=== PATIENT | female | born 1950 | race Caucasian/White ===

== ENCOUNTER → 2016-09-22 | Outpatient (CLI) | payer MEDICARE ==
--- NOTE | 2016-09-23 07:32 | XR ---
EXAMINATION TYPE: XR hand complete LT DATE OF EXAM: 09/22/2016 4:22 PM COMPARISON: NONE HISTORY: 66 year-old female left wrist and hand pain, stiffness TECHNIQUE: 3 views FINDINGS: A ring is present on the 4th digit. There are osteoarthritic changes, severe at the first CMC joint a nd also at the second DIP and third PIP joint, moderate at the first IP joint. Additional marginal sp urring and joint space narrowing at additional interphalangeal joints as well. No clear marginal eros ions. No soft tissue calcifications. No acute fracture or dislocation. IMPRESSION: Osteoarthritic changes, severe at the base of the thumb, first DIP, and third PIP joints but with add itional scattered osteoarthritic changes throughout the fingers.
== END ==
LOC: RADXRYALE 16:09
PROVIDERS: ATTEND Physician Assistant Medical
DX: M19.042 Primary osteoarthritis, left hand (principal)

== ENCOUNTER → 2016-12-30 | Outpatient (CLI) | payer MEDICARE ==
--- NOTE | 2016-12-30 10:49 | XR ---
EXAMINATION TYPE: XR knee complete bilateral , 6 VIEWS DATE OF EXAM ORDERED: 12/30/2016 HISTORY: [id number] dayday knee pain. COMPARISON: None. FINDINGS: There is peaking of intercondylar spines bilaterally. There is medial joint space loss dayday aterally. There is no chondrocalcinosis. There are mild remodeling changes in the patellofemoral join ts. I suspect a small right knee joint effusion. No definite left effusion is seen. No acute osseous lesion is seen. IMPRESSION: CHANGES CONSISTENT WITH MILD OSTEOARTHRITIS WITH A CONCOMITANT KNEE JOINT EFFUSION ON THE RIGHT.
== END | disposition home or self-care (01) ==
LOC: RADXRYALE 10:09
PROVIDERS: ATTEND Physician Assistant Medical
DX: M25.461 Effusion, right knee (principal); M25.562 Pain in left knee

== ENCOUNTER → 2017-06-22 | Outpatient (CLI) | payer MEDICARE ==
--- NOTE | 2017-06-23 10:46 | MM ---
Reason for exam: screening (asymptomatic). Last mammogram was performed 1 year and 1 month ago. History: Patient is postmenopausal. Family history of breast cancer in sister at age 50 and breast cancer in mother at age 70. Physical Findings: A clinical breast exam by your physician is recommended on an annual basis and results should be correlated with mammographic findings. MG 3D Screening Mammo W/Cad Bilateral CC and MLO view(s) were taken. Prior study comparison: June 01, 2016, bilateral MG 3d screening mammo w/cad. May 20, 2015, bilateral MG screening mammo w CAD. May 07, 2014, right breast MG work up mamm w CAD RT. There are scattered fibroglandular densities. Finding: There are typically benign round, diffuse and grouped calcifications in both breasts. There is no discrete abnormality. ASSESSMENT: Benign, BI-RAD 2 RECOMMENDATION: Routine screening mammogram of both breasts in 1 year.
== END ==
LOC: RADMAMWWP 08:57
PROVIDERS: ATTEND Family Medicine
DX: Z12.31 Encounter for screening mammogram for malignant neoplasm of breast (principal)
CPT/HCPCS: 77063; 77067

== ENCOUNTER 2017-11-03 10:50 | Day surgery (SDC) | payer MEDICARE ==
[~2017-11-03 10:50] MED LIST: LACTATED RINGERS 1,000 ML IV SCH; LIDOCAINE 1% 20 ML VIAL (10MG/ML) FOR IV START INTRADERMA PRN
[2017-11-03 11:33] VITALS: RESP 18; TEMP 97.5
[2017-11-03] MEDS ORDERED: LACTATED RINGERS 1,000 ML IV ONE (11:33)
--- NOTE | 2017-11-03 11:56 | P.GSHP ---
History of Present Illness H&P Date: 11/03/17 Chief Complaint: Colon cancer screening Patient here today for screening colonoscopy. No bowel related complaints. She is known to our service from evaluation of a left internal hernia in the past. Past Medical History Past Medical History: Rheumatoid Arthritis (RA) Additional Past Medical History / Comment(s): PULMONARY FIBROSIS. URINARY FREQUENCY. History of Any Multi-Drug Resistant Organisms: None Reported Past Surgical History: Hernia Repair, Orthopedic Surgery Additional Past Surgical History / Comment(s): BILATERAL CATARACT. LUNG BIOPSY. RIGHT ROTATOR CUFF. CARPAL TUNNEL. Past Anesthesia/Blood Transfusion Reactions: Motion Sickness Additional Past Anesthesia/Blood Transfusion Reaction / Comment(s): DIFFICULT TO WAKE UP Past Psychological History: No Psychological Hx Reported Smoking Status: Never smoker Past Alcohol Use History: None Reported Past Drug Use History: None Reported Medications and Allergies Home Medications Medication Instructions Recorded Confirmed Type Albuterol Sulfate [Proair Hfa] 1 puff INHALATION DAILY PRN 10/29/17 11/03/17 History Aspirin [Adult Low Dose Aspirin EC] 81 mg PO DAILY 10/29/17 11/03/17 History Budesonide/Formoterol Fumarate 1 puff INHALATION BID 10/29/17 11/03/17 History [Symbicort 80-4.5 Mcg Inhaler] Calcium Carbonate/Vitamin D3 1 tab PO DAILY 10/29/17 11/03/17 History [Calcium 500-Vit D3 200 Tablet] Etanercept [Enbrel] 50 mg IM TU 10/29/17 11/03/17 History Fluticasone Nasal [place] [Flonase 1 spray NASAL DAILY 10/29/17 11/03/17 History Nasal [place]] L.acidoph,Paracasei, B.lactis 1 cap PO DAILY 10/29/17 11/03/17 History [Probiotic] Levothyroxine Sodium [Synthroid] 112 mcg PO QAM 10/29/17 11/03/17 History Montelukast [Singulair] 10 mg PO DAILY 10/29/17 11/03/17 History Oxybutynin Chloride [Ditropan XL] 10 mg PO DAILY 10/29/17 11/03/17 History Turmeric Root Extract [Turmeric] 1 tab PO DAILY 10/29/17 11/03/17 History Allergies Allergy/AdvReac Type Severity Reaction Status Date / Time ciprofloxacin [From Cipro] Allergy GETS A Verified 11/03/17 11:24 COLD SORE loratadine [From Claritin] Allergy Rash/Hives Verified 11/03/17 11:24 nitrofurantoin Allergy POSSIBLY Verified 11/03/17 11:24 [From Macrobid] CAUSE THE PULMONARY FIBROSIS Sulfa (Sulfonamide Allergy Rash/Hives Verified 11/03/17 11:24 Antibiotics) Surgical - Exam Vital Signs Temp Pulse Resp BP Pulse Ox 97.5 F L 65 18 164/77 96 11/03/17 11:30 11/03/17 11:30 11/03/17 11:30 11/03/17 11:30 11/03/17 11:30 Physical exam: General: Well-developed, well-nourished HEENT: Normocephalic, sclerae nonicteric Abdomen: Nontender, nondistended Extremities: No edema Neuro: Alert and oriented Assessment and Plan (1) Colon cancer screening Narrative/Plan: Will proceed with colonoscopy at this time Current Visit: Yes Status: Acute Code(s): Z12.11 - ENCOUNTER FOR SCREENING FOR MALIGNANT NEOPLASM OF COLON SNOMED Code(s): 824259166
[2017-11-03] MEDS ORDERED: PROPOFOL 10 MG/ML 20 ML VIAL IV ONE (12:28)
--- NOTE | 2017-11-03 12:46 | P.PCN ---
Date of Procedure: 11/03/17 Procedure(s) Performed: PREOPERATIVE DIAGNOSIS: Colon cancer screening POSTOPERATIVE DIAGNOSIS: Normal exam PROCEDURE: Colonoscopy ANESTHESIA: MAC SURGEON: Darrius Nguyễn M.D. SPECIMENS: None ENDOSCOPIC PROCEDURE: The patient was placed on the endoscopy table in the left decubitus position. The Olympus colonoscope was inserted into the anus and passed under direct visualization to the base of the cecum. The appendiceal orifice was visualized. From that point the scope was slowly withdrawn inspecting all surfaces carefully. There were no neoplastic inflammatory or polypoid lesions throughout the cecum, ascending, transverse, descending, sigmoid and rectum. There was no diverticulosis noted. Digital rectal examination was normal. The patient was taken to the recovery room in stable condition per anesthesia guidelines. RECOMMENDATIONS: Increase fiber. Follow-up colonoscopy 10 years.
[2017-11-03 13:10] VITALS: BP 125/64; PULSE 58
== END 2017-11-03 13:30 | disposition home or self-care (01) ==
LOC: ORWHC2ENDO 10:50
PROVIDERS: ATTEND Surgery
DX: Z12.11 Encounter for screening for malignant neoplasm of colon (principal); M06.9 Rheumatoid arthritis, unspecified; J84.10 Pulmonary fibrosis, unspecified; R35.0 Frequency of micturition; Z79.82 Long term (current) use of aspirin; Z79.890 Hormone replacement therapy; Z79.51 Long term (current) use of inhaled steroids; Z79.899 Other long term (current) drug therapy; Z88.1 Allergy status to other antibiotic agents; Z88.2 Allergy status to sulfonamides; Z88.8 Allergy status to other drugs, medicaments and biological substances
CPT/HCPCS: J2704; G0121

== ENCOUNTER → 2018-07-04 | Outpatient (CLI) | payer MEDICARE ==
--- NOTE | 2018-07-04 09:38 | CT ---
EXAMINATION TYPE: CT sinus wo con DATE OF EXAM: 07/04/2018 COMPARISON: NONE HISTORY: Recurrent sinusitis Per order. Recurrent sinus infections requiring antibiotics per patient. CT DLP: 534 mGycm. Automated Exposure Control for Dose Reduction was Utilized. TECHNIQUE: CT scan of the sinuses is performed without contrast, axial images are obtained, coronal r eformatted images are also reviewed. FINDINGS: The paranasal sinuses including the frontal, ethmoid, sphenoid, and maxillary sinuses bila terally are well-aerated without abnormal opacification. Small caliber right frontal sinus incidental ly noted. There is tortuous course of the distal right internal carotid artery into the posterior asp ect of the right sphenoid sinus incidentally noted. Calcified plaque of the distal internal carotid a rteries bilaterally is incidentally noted. The ostiomeatal complex is patent bilaterally on the coron al images. Visualized portion of mastoid air cells show no abnormal opacification. The globes are intact bilate rally. Visualized portion of brain parenchyma shows diffuse age-related cerebral atrophy. IMPRESSION: The sinuses are clear and the ostiomeatal complex is patent bilaterally.
== END ==
LOC: RADCTMAIN 09:08
PROVIDERS: ATTEND Family Medicine
DX: J01.91 Acute recurrent sinusitis, unspecified (principal)
CPT/HCPCS: 70486

== ENCOUNTER → 2018-07-19 | Outpatient (CLI) | payer MEDICARE ==
--- NOTE | 2018-07-20 11:09 | MM ---
Reason for exam: screening (asymptomatic). Last mammogram was performed 1 year and 1 month ago. History: Patient is postmenopausal. Family history of breast cancer in sister at age 50 and breast cancer in mother at age 70. Physical Findings: A clinical breast exam by your physician is recommended on an annual basis and results should be correlated with mammographic findings. MG 3D Screening Mammo W/Cad Bilateral CC and MLO view(s) were taken. XCCL view(s) were taken of the right breast. Prior study comparison: June 22, 2017, bilateral MG 3d screening mammo w/cad. June 01, 2016, bilateral MG 3d screening mammo w/cad. The breast tissue is heterogeneously dense. This may lower the sensitivity of mammography. Stable benign calcifications. There is no discrete abnormality. No significant changes when compared with prior studies. ASSESSMENT: Benign, BI-RAD 2 RECOMMENDATION: Routine screening mammogram of both breasts in 1 year.
== END | disposition home or self-care (01) ==
LOC: RADMAMWWP 09:30
PROVIDERS: ATTEND Family Medicine
DX: Z12.31 Encounter for screening mammogram for malignant neoplasm of breast (principal)
CPT/HCPCS: 77063; 77067

== ENCOUNTER 2018-08-22 10:52 | Emergency (ER) | payer MEDICARE ==
[2018-08-22 12:02] LABS: Amorphous Sediment,Urine Occasional /hpf; Appearance,Urine Clear (Clear); Bacteria,Urine Rare /hpf; Bilirubin,Urine Negative (Negative); Blood,Urine Trace (Negative); Color,Urine Yellow; Glucose,Urine (UA) Negative (Negative); Ketones,Urine Negative (Negative); Leukocyte Esterase,Urine Moderate (Negative); Mucus,Urine Rare /hpf; Nitrite,Urine Positive (Negative); Protein,Urine Negative (Negative); RBC,Urine 1 /hpf (0-5); Specific Gravity,Urine 1.008 (1.001-1.035); Squamous Epithelial Cell,Urine <1 /hpf (0-4); Urobilinogen,Urine <2.0 mg/dL (<2.0); WBC,Urine 6 /hpf (0-5)
[2018-08-22] MEDS ORDERED: SODIUM CHLORIDE 0.9% 1,000 ML IV STA (12:11)
--- NOTE | 2018-08-22 12:22 | ED ---
General Adult HPI - General Source: patient, family, RN notes reviewed Mode of arrival: ambulatory Limitations: no limitations <Antonio Sherwood - Last Filed: 08/22/18 15:29> <Francisco Yip - Last Filed: 08/22/18 15:40> - General Chief complaint: Neuro Symptoms/Deficit Stated complaint: CONFUSION, LAPSE IN MEMORY Time Seen by Provider: 08/22/18 11:46 - History of Present Illness Initial comments: 68-year-old female with a past medical history pulmonary fibrosis, urinary frequency, rheumatoid arthritis, "abnormal heart rate" presents to the emergency department for a chief of memory loss occurring approximately 3 hours prior to arrival and lasting for about 30 minutes. Patient states she was sitting at breakfast when she suddenly couldn't remember her family members names. She states she had a scrotal through her phone to remember these names. She denies noticing any other symptoms or confusion. She states after about 30 minutes this completely resolved. She states she has not had these symptoms for about 2 hours. was witnessing event and states she did not have any facial droop or weakness. She was speaking clearly. Patient states she was recently diagnosed with carotid stenosis about a week ago. No significant history of hyperlipidemia or hypertension. She states she also has a "abnormal heart beat" but states it is not atrial fibrillation.Patient has no other complaints at this time including shortness of breath, chest pain, abdominal pain, nausea or vomiting, headache, or visual changes. (Antonio Sherwood) - Related Data Home Medications Medication Instructions Recorded Confirmed Albuterol Sulfate [Proair Hfa] 1 puff INHALATION RT-QID PRN 10/29/17 08/22/18 Aspirin [Adult Low Dose Aspirin EC] 81 mg PO DAILY 10/29/17 08/22/18 Budesonide/Formoterol Fumarate 1 puff INHALATION RT-BID 10/29/17 08/22/18 [Symbicort 80-4.5 Mcg Inhaler] Calcium Carbonate/Vitamin D3 1 tab PO DAILY 10/29/17 08/22/18 [Calcium 500-Vit D3 200 Tablet] Etanercept [Enbrel] 50 mg IM TU 10/29/17 08/22/18 Fluticasone Nasal [place] [Flonase 1 spray EA NOSTRIL DAILY 10/29/17 08/22/18 Nasal [place]] L.acidoph,Paracasei, B.lactis 1 cap PO DAILY 10/29/17 08/22/18 [Probiotic] Montelukast [Singulair] 10 mg PO DAILY 10/29/17 08/22/18 Oxybutynin Chloride [Ditropan XL] 10 mg PO DAILY 10/29/17 08/22/18 Calcium Polycarbophil [Fibercon] 625 mg PO DAILY 08/22/18 08/22/18 Cholecalciferol (Vitamin D3) 2,000 unit PO DAILY 08/22/18 08/22/18 [Vitamin D3] Levothyroxine Sodium [Synthroid] 100 mcg PO DAILY 08/22/18 08/22/18 Methotrexate Sodium [Methotrexate] 17.5 mg PO TU 08/22/18 08/22/18 Metoprolol Tartrate [Lopressor] 12.5 mg PO DAILY 08/22/18 08/22/18 Oseltamivir [Tamiflu] 75 mg PO Q12HR 08/22/18 08/22/18 Allergies Allergy/AdvReac Type Severity Reaction Status Date / Time ciprofloxacin [From Cipro] Allergy GETS A Verified 08/22/18 11:24 COLD SORE loratadine [From Claritin] Allergy Rash/Hives Verified 08/22/18 11:24 nitrofurantoin Allergy POSSIBLY Verified 08/22/18 11:24 [From Macrobid] CAUSE THE PULMONARY FIBROSIS Sulfa (Sulfonamide Allergy Rash/Hives Verified 08/22/18 11:24 Antibiotics) Review of Systems ROS Other: All systems not noted in ROS Statement are negative. <Antonio Sherwood - Last Filed: 08/22/18 15:29> ROS Other: All systems not noted in ROS Statement are negative. <Francisco Yip - Last Filed: 08/22/18 15:40> ROS Statement: Those systems with pertinent positive or pertinent negative responses have been documented in the HPI. Past Medical History Past Medical History: Rheumatoid Arthritis (RA) Additional Past Medical History / Comment(s): PULMONARY FIBROSIS. URINARY FREQUENCY. History of Any Multi-Drug Resistant Organisms: None Reported Past Surgical History: Hernia Repair, Orthopedic Surgery Additional Past Surgical History / Comment(s): BILATERAL CATARACT. LUNG BIOPSY. RIGHT ROTATOR CUFF. CARPAL TUNNEL. Past Anesthesia/Blood Transfusion Reactions: Motion Sickness Additional Past Anesthesia/Blood Transfusion Reaction / Comment(s): DIFFICULT TO WAKE UP Past Psychological History: No Psychological Hx Reported Smoking Status: Never smoker Past Alcohol Use History: None Reported Past Drug Use History: None Reported <Antonio Sherwood - Last Filed: 08/22/18 15:29> General Exam Limitations: no limitations General appearance: alert, in no apparent distress Head exam: Present: atraumatic, normocephalic, normal inspection Eye exam: Present: normal appearance, PERRL, EOMI. Absent: scleral icterus, conjunctival injection, periorbital swelling ENT exam: Present: normal exam, normal oropharynx (Uvula midline), mucous membranes moist, TM's normal bilaterally, normal external ear exam Neck exam: Present: normal inspection, full ROM. Absent: tenderness, meningismus, lymphadenopathy Respiratory exam: Present: normal lung sounds bilaterally. Absent: respiratory distress, wheezes, rales, rhonchi, stridor Cardiovascular Exam: Present: regular rate, normal rhythm, normal heart sounds. Absent: bradycardia, tachycardia, irregular rhythm Neurological exam: Present: alert, oriented X3, CN II-XII intact, normal gait Expanded Patient oriented to: Present: person, place, time Speech: Present: fluid speech Cranial nerves: EOM's Intact: Normal, Tongue Deviation: Normal, Nystagmus: Normal, Facial Sensation: Normal Cerebellar function: Finger to Nose: Normal, Romberg: Normal Upper motor neuron: Pronator Drift: Normal Sensory exam: Upper Extremity Light Touch: Normal, Upper Extremity Pin Prick: Normal, Lower Extremity Light Touch: Normal, Lower Extremity Pin Prick: Normal Motor strength exam: RUE: 5 (no drift), LUE: 5 (no drift), RLE: 5 (no drift), LLE: 5 (no drift) Eye Response: (4) open spontaneously Motor Response: (6) obeys commands Verbal Response: (5) oriented Tara Total: 15 Psychiatric exam: Present: normal affect, normal mood Skin exam: Present: warm, dry, intact, normal color. Absent: rash <Antonio Sherwood - Last Filed: 08/22/18 15:29> Course <Antonio Sherwood - Last Filed: 08/22/18 15:29> <Francisco Yip - Last Filed: 08/22/18 15:40> Vital Signs 08/22/18 08/22/18 11:09 13:38 Temperature 98.9 F Pulse Rate 71 63 Respiratory 20 16 Rate Blood Pressure 133/76 140/81 O2 Sat by Pulse 98 94 L Oximetry - Reevaluation(s) Reevaluation #1: 08/22/18 13:57 Called lab, apparently blood was just received (Antonio Sherwood) Reevaluation #2: 08/22/18 15:39 PA supervision: I proceeded [id number] evaluation the patient she did present with about 30 minutes of memory loss today. The presentation appears consistent with a TIA. The initial workup here was within recently normal limits. After discussion the patient was recommended to be transferred to a facility with neurology availability. They've agreed to be transferred to [facility]. She currently is asymptomatic I do agree with the assessment and plan (Francisco Yip) EKG Findings - EKG Comments: EKG Findings:: EKG shows normal sinus rhythm, ventricular rate 60, GA interval 156, QTC 436 <Antonio Sherwood - Last Filed: 08/22/18 15:29> Medical Decision Making - Lab Data Result diagrams: 08/22/18 13:20 08/22/18 13:20 <Antonio Sherwood - Last Filed: 08/22/18 15:29> - Lab Data Result diagrams: 08/22/18 13:20 08/22/18 13:20 <Francisco Yip - Last Filed: 08/22/18 15:40> - Medical Decision Making 68-year-old female presents to the emergency department for a chief complaint of memory lapse lasting for about 30 minutes. This had resolved prior to arrival. NIH is 0. Blood work is generally unremarkable. Patient has some very mild transaminitis. Troponin within normal limits at 0.017. CT shows age-related changes without acute intracranial process. Patient also complaining of congestion for the past week. Chest x-ray did show possible underlying pneumonia, patient given Rocephin and azithromycin for this. Given patient's symptoms she likely experienced a TIA. She will be transferred to [facility] for neurology consult. Patient agrees with this treatment. Dr. Yip also saw the patient. (Antonio Sherwood) - Lab Data Lab Results 08/22/18 08/22/18 08/22/18 Range/Units 11:30 13:20 13:20 WBC 3.6 L (3.8-10.6) k/uL RBC 4.35 (3.80-5.40) m/uL Hgb 13.5 (11.4-16.0) gm/dL Hct 40.4 (34.0-46.0) % MCV 92.7 D (80.0-100.0) fL MCH 31.1 (25.0-35.0) pg MCHC 33.5 (31.0-37.0) g/dL RDW 13.5 (11.5-15.5) % Plt Count 138 L (150-450) k/uL Neutrophils % 56 % Lymphocytes % 27 % Monocytes % 12 % Eosinophils % 1 % Basophils % 1 % Neutrophils # 2.0 (1.3-7.7) k/uL Lymphocytes # 1.0 (1.0-4.8) k/uL Monocytes # 0.4 (0-1.0) k/uL Eosinophils # 0.0 (0-0.7) k/uL Basophils # 0.0 (0-0.2) k/uL PT (9.0-12.0) sec INR (<1.2) APTT (22.0-30.0) sec Sodium 135 L (137-145) mmol/L Potassium 4.2 (3.5-5.1) mmol/L Chloride 102 (98-107) mmol/L Carbon Dioxide 26 (22-30) mmol/L Anion Gap 7 mmol/L BUN 13 (7-17) mg/dL Creatinine 0.50 L (0.52-1.04) mg/dL Est GFR (CKD-EPI)AfAm >90 (>60 ml/min/1.73 sqM) Est GFR (CKD-EPI)NonAf >90 (>60 ml/min/1.73 sqM) Glucose 110 H (74-99) mg/dL Calcium 9.1 (8.4-10.2) mg/dL Total Bilirubin 0.7 (0.2-1.3) mg/dL AST 105 H (14-36) U/L ALT 166 H (9-52) U/L Alkaline Phosphatase 62 (38-126) U/L Troponin I (0.000-0.034) ng/mL Total Protein 7.5 (6.3-8.2) g/dL Albumin 3.8 (3.5-5.0) g/dL Urine Color Yellow Urine Appearance Clear (Clear) Urine pH 6.0 (5.0-8.0) Ur Specific [place] 1.008 (1.001-1.035) Urine Protein Negative (Negative) Urine Glucose (UA) Negative (Negative) Urine Ketones Negative (Negative) Urine Blood Trace H (Negative) Urine Nitrite Positive H (Negative) Urine Bilirubin Negative (Negative) Urine Urobilinogen <2.0 (<2.0) mg/dL Ur Leukocyte Esterase Moderate H (Negative) Urine RBC 1 (0-5) /hpf Urine WBC 6 H (0-5) /hpf Ur Squamous Epith Cells <1 (0-4) /hpf Amorphous Sediment Occasional H (None) /hpf Urine Bacteria Rare H (None) /hpf Urine Mucus Rare H (None) /hpf 08/22/18 08/22/18 Range/Units 13:20 13:20 WBC (3.8-10.6) k/uL RBC (3.80-5.40) m/uL Hgb (11.4-16.0) gm/dL Hct (34.0-46.0) % MCV (80.0-100.0) fL MCH (25.0-35.0) pg MCHC (31.0-37.0) g/dL RDW (11.5-15.5) % Plt Count (150-450) k/uL Neutrophils % % Lymphocytes % % Monocytes % % Eosinophils % % Basophils % % Neutrophils # (1.3-7.7) k/uL Lymphocytes # (1.0-4.8) k/uL Monocytes # (0-1.0) k/uL Eosinophils # (0-0.7) k/uL Basophils # (0-0.2) k/uL PT 10.6 (9.0-12.0) sec INR 1.0 (<1.2) APTT 23.4 (22.0-30.0) sec Sodium (137-145) mmol/L Potassium (3.5-5.1) mmol/L Chloride (98-107) mmol/L Carbon Dioxide (22-30) mmol/L Anion Gap mmol/L BUN (7-17) mg/dL Creatinine (0.52-1.04) mg/dL Est GFR (CKD-EPI)AfAm (>60 ml/min/1.73 sqM) Est GFR (CKD-EPI)NonAf (>60 ml/min/1.73 sqM) Glucose (74-99) mg/dL Calcium (8.4-10.2) mg/dL Total Bilirubin (0.2-1.3) mg/dL AST (14-36) U/L ALT (9-52) U/L Alkaline Phosphatase (38-126) U/L Troponin I 0.017 (0.000-0.034) ng/mL Total Protein (6.3-8.2) g/dL Albumin (3.5-5.0) g/dL Urine Color Urine Appearance (Clear) Urine pH (5.0-8.0) Ur Specific [place] (1.001-1.035) Urine Protein (Negative) Urine Glucose (UA) (Negative) Urine Ketones (Negative) Urine Blood (Negative) Urine Nitrite (Negative) Urine Bilirubin (Negative) Urine Urobilinogen (<2.0) mg/dL Ur Leukocyte Esterase (Negative) Urine RBC (0-5) /hpf Urine WBC (0-5) /hpf Ur Squamous Epith Cells (0-4) /hpf Amorphous Sediment (None) /hpf Urine Bacteria (None) /hpf Urine Mucus (None) /hpf Disposition Is patient prescribed a controlled substance at d/c from ED?: No Time of Disposition: 15:35 - Out of Hospital Transfer - Req. Specs Out of Hospital Transfer - Requested Specifics: Other Emergency Center ([facility]) <Antonio Sherwood - Last Filed: 08/22/18 15:29> <Francisco Yip - Last Filed: 08/22/18 15:40> Clinical Impression: TIA (transient ischemic attack) Disposition: OTHER INSTITUTION NOT DEFINED Condition: Fair Referrals: Christopher Tran DO [Primary Care Provider] - 1-2 days
--- NOTE | 2018-08-22 13:11 | CT ---
EXAMINATION TYPE: CT brain wo con DATE OF EXAM: 08/22/2018 COMPARISON: None HISTORY: Episode of memory loss. CT DLP: 1036.[address] of the brain was performed. The ventricles, basal cisterns and sulci overlying the cerebral convexities demonstrate mild enlargem ent. There is no evidence for intracranial hemorrhage or sulcal effacement. There is decreased attenuation about the periventricular white matter and deep white matter of both c erebral hemispheres, compatible with chronic small vessel ischemia. Differential diagnosis does inclu de demyelination. No mass effects are seen.No midline shift. Osseous calvarium is intact. If symptoms persist consider MRI. IMPRESSION: 1. Age related atrophic and chronic small vessel ischemic change without acute intracranial process s een at this time.
--- NOTE | 2018-08-22 13:12 | XR ---
EXAMINATION TYPE: XR chest 2V DATE OF EXAM: 08/22/2018 COMPARISON: 12/13/2014 HISTORY: Shortness of breath TECHNIQUE: Frontal and lateral views of the chest are obtained. FINDINGS: Scattered senescent parenchymal changes noted. Hyperinflation compatible with COPD. Patchy density right middle lobe and right upper lobe may reflect underlying pneumonia. Scattered are as of linear parenchymal scar. Heart size is stable. Mediastinal structures are stable and grossly unremarkable. No evidence for hilar prominence. Degenerative changes dorsal spine. IMPRESSION: 1. Patchy density right middle lobe and right upper lobe may reflect underlying pneumonia. Scattered areas of linear parenchymal scar.
[2018-08-22 14:02] LABS: Basophils % (A) 1 %; Eosinophils % (A) 1 %; HCT 40.4 % (34.0-46.0); HGB 13.5 gm/dL (11.4-16.0); Lymphocytes % (A) 27 %; MCH 31.1 pg (25.0-35.0); MCHC 33.5 g/dL (31.0-37.0); Mean Platelet Volume 7.4; Monocytes # (A) 0.4 k/uL (0-1.0); Monocytes % (A) 12 %; Neutrophils % (A) 56 %; Platelet Count 138 k/uL (150-450); RBC 4.35 m/uL (3.80-5.40); RDW 13.5 % (11.5-15.5); WBC 3.6 k/uL (3.8-10.6)
[2018-08-22 14:03] LABS: MCV 92.7 fL (80.0-100.0); Partial Thromboplastin Time 23.4 sec (22.0-30.0); Prothrombin Time 10.6 sec (9.0-12.0)
[2018-08-22 14:04] LABS: ALT 166 U/L (9-52); AST 105 U/L (14-36); Albumin 3.8 g/dL (3.5-5.0); Alkaline Phosphatase 62 U/L (38-126); Anion Gap 7 mmol/L; Blood Urea Nitrogen 13 mg/dL (7-17); Calcium 9.1 mg/dL (8.4-10.2); Carbon Dioxide 26 mmol/L (22-30); Chloride 102 mmol/L (98-107); Glucose 110 mg/dL (74-99); Sodium 135 mmol/L (137-145); Total Bilirubin 0.7 mg/dL (0.2-1.3); Total Protein 7.5 g/dL (6.3-8.2)
[2018-08-22 14:11] LABS: Potassium 4.2 mmol/L (3.5-5.1)
[2018-08-22] MEDS ORDERED: AZITHROMYCIN 500 MG in SODIUM CHLORIDE 0.9% 250 ML IVPB STA ×3 (15:01→16:49)
[2018-08-22] MEDS ORDERED: cefTRIAXone IN SWFI 1,000 MG/10 ML SYRINGE IVP STA (15:01)
[2018-08-22 15:42] VITALS: RESP 18
[2018-08-22 17:15] VITALS: BP 156/88; PULSE 64; TEMP 98.4
== END 2018-08-22 17:07 | disposition other institution (70) ==
LOC: EC 10:52
DX: G45.9 Transient cerebral ischemic attack, unspecified (principal); R00.9 Unspecified abnormalities of heart beat; R41.3 Other amnesia; M06.9 Rheumatoid arthritis, unspecified; Z79.82 Long term (current) use of aspirin; Z79.51 Long term (current) use of inhaled steroids; Z79.890 Hormone replacement therapy; Z79.899 Other long term (current) drug therapy; Z88.1 Allergy status to other antibiotic agents; Z88.8 Allergy status to other drugs, medicaments and biological substances; Z88.2 Allergy status to sulfonamides
CPT/HCPCS: 99285; 96374; 96361; 36415; 93005; 80053; 84484; 85025; 85610; 85730; 81001; 87040; 87086; 87077; 87186; 71046; 70450; J0456; J0696

== ENCOUNTER → 2019-08-09 | Outpatient (CLI) | payer MEDICARE ==
--- NOTE | 2019-08-10 12:12 | MM ---
Reason for exam: screening (asymptomatic). Last mammogram was performed 1 year and 1 month ago. History: Patient is postmenopausal. Family history of breast cancer in sister at age 50 and breast cancer in mother at age 70. Physical Findings: A clinical breast exam by your physician is recommended on an annual basis and results should be correlated with mammographic findings. MG 3D Screening Mammo W/Cad Bilateral CC and MLO view(s) were taken. XCCL view(s) were taken of the right breast. Prior study comparison: July 19, 2018, bilateral MG 3d screening mammo w/cad. June 22, 2017, bilateral MG 3d screening mammo w/cad. The breast tissue is heterogeneously dense. This may lower the sensitivity of mammography. There are benign appearing round calcifications bilaterally. There is chronic nodularity in the right breast. There is no discrete abnormality. ASSESSMENT: Benign, BI-RAD 2 RECOMMENDATION: Routine screening mammogram of both breasts in 1 year.
== END | disposition home or self-care (01) ==
LOC: RADMAMWWP 09:52
PROVIDERS: ATTEND Family Medicine
DX: Z12.31 Encounter for screening mammogram for malignant neoplasm of breast (principal)
CPT/HCPCS: 77063; 77067

== ENCOUNTER → 2020-02-23 | Outpatient (CLI) | payer MEDICARE ==
--- NOTE | 2020-02-23 13:03 | BD ---
EXAMINATION TYPE: Axial Bone Density DATE OF EXAM: 02/23/2020 COMPARISON: 12.18.2009 CLINICAL HISTORY: 69 YR OLD FEMALE....ICD-10 CODE: M84.80 BONE DISORDER, M05.80 RA Height: 59.2 Weight: 140 FRAX RISK QUESTIONS: Family History (Parent hip fracture): YES Glucocorticoids (More than 3mos): YES (Ex: prednisone, prednisolone, methylprednisolone, dexamethasone, and hydrocortisone). Secondary Osteoporosis: Rheumatoid Arthritis: YES RISK FACTORS HISTORY OF: Family History of Osteoporosis: YES, HER MOTHER, NO FX, BUT HER MATERNAL AUNTS YES, WITH BROKEN HIPS Postmenopausal woman: YES, AT ABOUT 50 YRS OLD Lost more than 2 inches in height since high school: YES Hyperparathyroidism: NO Adrenal Insufficiency: NO MEDICATIONS: Prednisone or other steroids: STEROIDAL INHALERS FOR PULMONARY FIBROSIS, AND ASTHMA FOR MANY YRS Thyroid Medications: YES, SYNTHROID FOR OVER 20 YRS Additional Medications: STATIN FOR CHOLESTEROL, VIT D AND CALCIUM Additional History: RA, CHOLESTEROL, EXAM MEASUREMENTS: Bone mineral densitometry was performed using the [employer] System. Bone mineral density as measured about the Lumbar spine is: ----- L1-L4(G/cm2): 1.036 T Score Values are as follows: ----- L1: -2.9 ----- L2: -2.4 ----- L3: -1.3 ----- L4: 0.6 ----- L1-L4: -1.2 Bone mineral density has: Increased 2.7% SINCE 12.18.2009 Bone mineral density about the R hip (g/cm2): 0.860 Bone mineral density about the L hip (g/cm2): 0.855 T Score values are as follows: -----R Neck: -2.1 -----L Neck: -1.9 -----R Total: -1.2 -----L Total: -1.2 Bone mineral density has: Decreased 11.0% SINCE: 12.18.2009 FRAX%s: THERE IS 39.2% CHANCE FOR A MAJOR OSTEOPOROTIC FX AND A 18.2% FOR HIP....PROBABILITY FOR F X IN 10 YRS TIME IMPRESSION: Osteopenia (T Score between -2.5 and -1). There is slightly increased risk of fracture and the patient may be considered for treatment. Re-Screen 2-5 years. NOTE: T-SCORE=SD OF THE YOUNG ADULT MEAN.
== END | disposition home or self-care (01) ==
LOC: RADBDWWP 09:05
PROVIDERS: ATTEND Family Medicine
DX: M85.80 Other specified disorders of bone density and structure, unspecified site (principal); M05.80 Other rheumatoid arthritis with rheumatoid factor of unspecified site
CPT/HCPCS: 77080

== ENCOUNTER → 2020-10-09 | Outpatient (CLI) | payer MEDICARE ==
--- NOTE | 2020-10-10 13:23 | MM ---
Reason for exam: screening (asymptomatic). Last mammogram was performed 1 year and 2 months ago. History: Patient is postmenopausal. Family history of breast cancer in sister at age 50 and breast cancer in mother at age 70. Physical Findings: A clinical breast exam by your physician is recommended on an annual basis and results should be correlated with mammographic findings. MG 3D Screening Mammo W/Cad Bilateral CC and MLO view(s) were taken. Prior study comparison: August 09, 2019, bilateral MG 3d screening mammo w/cad. July 19, 2018, bilateral MG 3d screening mammo w/cad. There are scattered fibroglandular densities. There is no discrete abnormality. ASSESSMENT: Benign, BI-RAD 2 RECOMMENDATION: Routine screening mammogram of both breasts in 1 year.
== END | disposition home or self-care (01) ==
LOC: RADMAMWWP 09:50
PROVIDERS: ATTEND Family Medicine
DX: Z12.31 Encounter for screening mammogram for malignant neoplasm of breast (principal); Z78.0 Asymptomatic menopausal state; Z80.3 Family history of malignant neoplasm of breast
CPT/HCPCS: 77063; 77067

== ENCOUNTER → 2020-12-19 | Outpatient (CLI) | payer MEDICARE ==
--- NOTE | 2020-12-20 12:31 | ECHOF ---
Referral Reason:I10 hypertention MEASUREMENTS -------- HEIGHT: 152.4 cm WEIGHT: 57.2 kg BP: IVSd: 1.3 cm (0.6 - 1.1) LVIDd: 4.2 cm (3.9 - 5.3) LVPWd: 1.3 cm (0.6 - 1.1) IVSs: 1.6 cm LVIDs: 3.5 cm LVPWs: 1.4 cm LAESV Index (A-L): 46.86 ml/m Ao Diam: 3.7 cm (2.0 - 3.7) AV Cusp: 1.7 cm (1.5 - 2.6) MV EXCURSION: 16.312 mm (> 18.000) MV EF SLOPE: 79 mm/s (70 - 150) EPSS: 0.5 cm MV E Oscar: 0.57 m/s MV DecT: 299 ms MV A Oscar: 0.85 m/s MV E/A Ratio: 0.67 RAP: 5.00 mmHg RVSP: 37.64 mmHg FINDINGS -------- Sinus rhythm. This was a technically good study. The left ventricular size is normal. There is mild concentric left ventricular hypertrophy. Overa ll left ventricular systolic function is normal with, an EF between 55 - 60 %. The right ventricle is normal in size. LA is moderately dilated 34-39 ml/m2 The right atrial size is normal. There is mild aortic valve sclerosis. There is no evidence of aortic regurgitation. Mild mitral annular calcification present. Mild mitral regurgitation is present. Mild tricuspid regurgitation present. There is mild pulmonary hypertension. Trace/mild (physiologic) pulmonic regurgitation. There is no pericardial effusion. CONCLUSIONS -------- 1. The left ventricular size is normal. 2. There is mild concentric left ventricular hypertrophy. 3. Overall left ventricular systolic function is normal with, an EF between 55 - 60 %. 4. The right ventricle is normal in size. 5. LA is moderately dilated 34-39 ml/m2 6. The right atrial size is normal. 7. There is mild aortic valve sclerosis. 8. Mild mitral annular calcification present. 9. Mild mitral regurgitation is present. 10. Mild tricuspid regurgitation present. 11. There is mild pulmonary hypertension. 12. Trace/mild (physiologic) pulmonic regurgitation. 13. There is no pericardial effusion. LABORATORY TESTER: Kim Ireland RDCS
== END ==
LOC: RADECHMAIN 13:33
PROVIDERS: ATTEND Family Medicine
DX: I08.8 Other rheumatic multiple valve diseases (principal); I27.20 Pulmonary hypertension, unspecified
CPT/HCPCS: 93306

== ENCOUNTER 2020-12-30 06:04 | Day surgery (SDC) | payer MEDICARE ==
[2020-12-27 09:57] VITALS: BMI 24.4
[~2020-12-30 06:04] MED LIST changes: +ACETAMINOPHEN TAB 500 MG TAB PO PRN; +DEXAMETHASONE SOD PHOSPHATE 4 MG/ML 1 ML VIAL IV ONE; +HEPARIN SODIUM,PORCINE/PF 5,000 UNIT/0.5 ML SYRINGE SQ PRN; +HYDROmorphone 0.5 MG/0.5 ML SYRINGE IVP PRN; +LIDOCAINE 1% (10MG/ML) FOR IV START INTRADERMA PRN; -LIDOCAINE 1% 20 ML VIAL (10MG/ML) FOR IV START INTRADERMA PRN; +MIDAZOLAM 2 MG/2 ML VIAL IV PRN; +ONDANSETRON 4 MG/2 ML VIAL IVP ONE
--- NOTE | 2020-12-30 07:44 | P.GSHP ---
History of Present Illness H&P Date: 12/30/20 Chief Complaint: Left inguinal hernia 70-year-old female here today for elective repair left inguinal hernia. Patient with history of previous right-sided inguinal hernia repair in the past. Hernia has been getting larger. Mild pain at times. Past Medical History Past Medical History: Atrial Fibrillation, Asthma, CVA/TIA, Hypertension, Rheumatoid Arthritis (RA), Thyroid Disorder Additional Past Medical History / Comment(s): TIA (AUGUST 2018)., PULMONARY FIBROSIS., FREQUENT UTI'S (AMOXICILLIN PROPHYLACTIC) History of Any Multi-Drug Resistant Organisms: None Reported Past Surgical History: Hernia Repair, Orthopedic Surgery Additional Past Surgical History / Comment(s): CATARACTS. ,LUNG BIOPSY., RIGHT ROTATOR CUFF. , CARPAL TUNNEL., RIGHT INGUINAL HERNIA Past Anesthesia/Blood Transfusion Reactions: No Reported Reaction, Motion Sickness Additional Past Anesthesia/Blood Transfusion Reaction / Comment(s): . Past Psychological History: No Psychological Hx Reported Smoking Status: Never smoker Past Alcohol Use History: None Reported Past Drug Use History: None Reported - Past Family History Mother Family Medical History: Cancer Additional Family Medical History / Comment(s): BREAST CANCER Sister(s) Family Medical History: Cancer Additional Family Medical History / Comment(s): BREAST CANCER Medications and Allergies Home Medications Medication Instructions Recorded Confirmed Type Albuterol Sulfate [Proair Hfa] 1 puff INHALATION RT-QID PRN 10/29/17 12/30/20 History Aspirin [Adult Low Dose Aspirin EC] 81 mg PO DAILY 10/29/17 12/27/20 History Calcium Carbonate/Vitamin D3 1 tab PO DAILY 10/29/17 12/30/20 History [Calcium 500-Vit D3 200 Tablet] Etanercept [Enbrel] 50 mg IM TU 10/29/17 12/30/20 History Fluticasone Nasal [place] [Flonase 1 spray EA NOSTRIL DAILY 10/29/17 12/30/20 History Nasal [place]] L.acidoph,Paracasei, B.lactis 1 cap PO DAILY 10/29/17 12/27/20 History [Probiotic] Montelukast [Singulair] 10 mg PO 10/29/17 12/30/20 History Levothyroxine Sodium [Synthroid] 100 mcg PO DAILY 08/22/18 12/30/20 History Alendronate Sodium [Fosamax] 70 mg PO TU 12/27/20 12/30/20 History Amoxicillin 250 mg PO DAILY 12/27/20 12/30/20 History Apixaban [Eliquis] 5 mg PO BID 12/27/20 12/27/20 History Atorvastatin [Lipitor] 40 mg PO HS 12/27/20 12/30/20 History Budesonide-Formot 160-4.5 Mcg 2 puff INHALATION BID 12/27/20 12/30/20 History [Symbicort 160-4.5 Mcg Inhaler] Cholecalciferol [Vitamin D3 (25 50 mcg PO DAILY 12/27/20 12/27/20 History Mcg = 1000 Iu)] Glucosam/Hawk-Msm1/C/Sandor/Bosw 1 each PO BID 12/27/20 12/27/20 History [Glucosamine-Chondroitin Tablet] Metoprolol Tartrate [Lopressor] 12.5 mg PO DAILY 12/27/20 12/30/20 History Ubidecarenone [Co Q-10] 100 mg PO DAILY 12/27/20 12/27/20 History Allergies Allergy/AdvReac Type Severity Reaction Status Date / Time ciprofloxacin [From Cipro] Allergy GETS A Verified 12/30/20 06:27 COLD SORE loratadine [From Claritin] Allergy Rash/Hives Verified 12/30/20 06:27 nitrofurantoin Allergy POSSIBLY Verified 12/30/20 06:27 [From Macrobid] CAUSE THE PULMONARY FIBROSIS Sulfa (Sulfonamide Allergy Rash/Hives Verified 12/30/20 06:27 Antibiotics) Surgical - Exam Vital Signs Temp Pulse Resp BP Pulse Ox 98.2 F 51 L 16 168/78 98 12/30/20 06:30 12/30/20 06:30 12/30/20 06:30 12/30/20 06:30 12/30/20 06:30 Physical exam: General: Well-developed, well-nourished HEENT: Normocephalic, sclerae nonicteric Abdomen: Nontender, nondistended, reducible left inguinal hernia Extremities: No edema Neuro: Alert and oriented Assessment and Plan (1) Left inguinal hernia Narrative/Plan: Will proceed with repair left inguinal hernia at this time. Risks of bleeding, infection, recurrence, bladder and bowel injury, numbness, nerve injury, conversion to an open procedure were discussed with the patient. The patient understands and wishes to proceed. Current Visit: Yes Status: Acute Code(s): K40.90 - UNIL INGUINAL HERNIA, W/O OBST OR GANGR, NOT SPCF RECUR SNOMED Code(s): 717209748
[2020-12-30] MEDS ORDERED: PROPOFOL 10 MG/ML 20 ML VIAL IV ONE (07:45)
[2020-12-30] MEDS ORDERED: BUPIVACAINE (PF) 0.25% 30 ML VIAL SQ ONE ×3 (07:45→08:16)
[2020-12-30] MEDS ORDERED: fentaNYL (PF) 50 MCG/ML 2 ML AMP ONE (07:45)
[2020-12-30] MEDS ORDERED: LIDOCAINE 1% INJ 10MG/ML (20 ML MDV) ONE (07:45)
[2020-12-30] MEDS ORDERED: GLYCOPYRROLATE 0.2 MG/ML 2 ML VIAL ONE (07:45)
[2020-12-30] MEDS ORDERED: ePHEDrine SULFATE/0.9% NACL/PF 50 MG/5 ML SYRINGE IV ONE (07:45)
[2020-12-30] MEDS ORDERED: NEOSTIGMINE 1 MG/ML 10 ML VIAL ONE (07:45)
[2020-12-30] MEDS ORDERED: MIDAZOLAM 2 MG/2 ML VIAL ONE (07:45)
[2020-12-30] MEDS ORDERED: ROCURONIUM 10 MG/ML (5 ML VIAL) IV ONE (07:45)
[2020-12-30] MEDS ORDERED: LACTATED RINGERS 1,000 ML IV ONE (09:02)
--- NOTE | 2020-12-30 09:28 | P.OP ---
Date of Procedure: 12/30/20 Procedure(s) Performed: PREOPERATIVE DIAGNOSIS: Left inguinal hernia POSTOPERATIVE DIAGNOSIS: Same PROCEDURE: Laparoscopic da Ethel assisted repair left inguinal hernia with mesh SURGEON: Dr. Nguyễn ANESTHESIA: General OPERATIVE PROCEDURE DETAILS: Patient was placed in the operating table in the supine position. The patient was placed under general anesthesia. The abdomen was prepped and draped in usual sterile fashion. A small curvilinear supraumbilical incision was made. The fascia was retracted anteriorly with Bahman forceps. The Veress needle was inserted. The saline drop test was normal. Insufflation took place to 15 mmHg. An 8 mm trocar was placed into the peritoneal cavity. 2 additional 8 mm trochars were placed in the right upper quadrant and left upper quadrant under visualization. The robotic arms were then brought in and docked into place. The fenestrated bipolar was used in the left arm and the laparoscopic afshin was utilized in the right arm. A 30 8 mm scope was used in the up position. The peritoneal cavity was inspected. The patient had a large indirect hernia on the left-hand side. The right side appeared normal with some previous scarring from prior repair. The peritoneum was incised in a horizontal fashion cephalad to the internal inguinal ring. Following that careful dissection of the preperitoneal space took place. This took place using both electrocautery, sharp dissection but primarily blunt dissection. Visualization of the pubic tubercle and Guille's ligament took place medially. Full dissection took place laterally as well. The hernia sac was fully dissected. Once we had adequate space the extra-large Bard 3-D mid mesh was advanced into the preperitoneal space and flattened out appropriately to cover all potential hernia sites. No sutures were used. The peritoneal defect was then closed using a absorbable 2-0 VLok suture. The hernia sac was incorporated into the peritoneal closure to help prevent future recurrence. The pneumoperitoneum was then evacuated. The skin of all 3 sites was closed using a 4-0 Monocryl stitch. The patient did have some subcutaneous emphysema noted once we removed our trochars. This was thought to be mild to moderate in degree. Skin glue was then applied. HERNIA CHARACTERISTICS: Length: 7 cm Width: 2 cm Type: Indirect inguinal TYPE OF MESH USED: Bard 3-D mid extra-large LOCATION OF MESH: Preperitoneal FIXATION: None DISPOSITION: Stable to recovery room
[2020-12-30 09:29] VITALS: TEMP 97
[2020-12-30 11:13] VITALS: BP 1388/78; PULSE 78; RESP 18
[2020-12-30] MEDS ORDERED: ACETAMINOPHEN TAB 325 MG TAB PO SCH (13:00)
[2020-12-30] MEDS ORDERED: IBUPROFEN 600 MG TAB PO SCH (16:00)
== END 2020-12-30 11:19 | disposition home or self-care (01) ==
LOC: OR 06:04
PROVIDERS: ATTEND Surgery
DX: K40.90 Unilateral inguinal hernia, without obstruction or gangrene, not specified as recurrent (principal); I48.91 Unspecified atrial fibrillation; I10 Essential (primary) hypertension; M06.9 Rheumatoid arthritis, unspecified; Z86.73 Personal history of transient ischemic attack (TIA), and cerebral infarction without residual deficits; Z87.440 Personal history of urinary (tract) infections; E07.9 Disorder of thyroid, unspecified; J84.10 Pulmonary fibrosis, unspecified; Z88.1 Allergy status to other antibiotic agents; Z88.2 Allergy status to sulfonamides; Z79.899 Other long term (current) drug therapy
CPT/HCPCS: 49650; S2900

== ENCOUNTER → 2021-10-23 | Outpatient (CLI) | payer MEDICARE ==
--- NOTE | 2021-10-24 12:28 | MM ---
Reason for exam: screening (asymptomatic). Last mammogram was performed 1 year ago. History: Patient is postmenopausal. Family history of breast cancer in sister at age 50 and breast cancer in mother at age 70. Physical Findings: A clinical breast exam by your physician is recommended on an annual basis and results should be correlated with mammographic findings. MG 3D Screening Mammo W/Cad Bilateral CC and MLO view(s) were taken. Prior study comparison: October 09, 2020, bilateral MG 3d screening mammo w/cad. August 09, 2019, bilateral MG 3d screening mammo w/cad. The breast tissue is heterogeneously dense. This may lower the sensitivity of mammography. Stable benign calcifications. There is no discrete abnormality. No significant changes when compared with prior studies. ASSESSMENT: Benign, BI-RAD 2 RECOMMENDATION: Routine screening mammogram of both breasts in 1 year.
== END | disposition home or self-care (01) ==
LOC: RADMAMWWP 13:20
PROVIDERS: ATTEND Family Medicine
DX: Z12.31 Encounter for screening mammogram for malignant neoplasm of breast (principal); Z78.0 Asymptomatic menopausal state; Z80.3 Family history of malignant neoplasm of breast
CPT/HCPCS: 77063; 77067

== ENCOUNTER 2022-05-21 14:11 | Inpatient (IN) | payer MEDICARE ==
--- NOTE | 2022-05-21 16:38 | XR ---
EXAMINATION TYPE: XR chest 2V DATE OF EXAM: 05/21/2022 4:32 PM COMPARISON: Chest radiographs from 08/22/2018, CT 10/02/2015. TECHNIQUE: XR chest 2V Frontal and lateral views of the chest. CLINICAL INDICATION:Female, 72 years old with history of altered mental status; FINDINGS: Lungs/Pleura: Similar patchy streaky opacities of the lungs when compared to 2019. There is no eviden ce of pleural effusion, focal consolidation, or pneumothorax. Pulmonary vascularity: Unremarkable. Heart/mediastinum: Cardiomediastinal silhouette is unremarkable. Atherosclerotic calcifications are seen in the aorta. Musculoskeletal: No acute osseous pathology. IMPRESSION: Similar patchy density right middle lobe and right upper lobe favored to represent pulmonary fibrotic changes given similar findings in [address] 10/02/2015.
[2022-05-21 16:42] LABS: Basophils % (A) 0 %; Eosinophils % (A) 0 %; HCT 39.3 % (34.0-46.0); Lymphocytes # (A) 0.5 k/uL (1.0-4.8); Lymphocytes % (A) 4 %; MCHC 35.6 g/dL (31.0-37.0); Mean Platelet Volume 7.2; Monocytes # (A) 0.7 k/uL (0-1.0); Monocytes % (A) 6 %; Neutrophils # (A) 10.7 k/uL (1.3-7.7); Neutrophils % (A) 88 %; Platelet Count 187 k/uL (150-450); RBC 4.36 m/uL (3.80-5.40); RDW 12.6 % (11.5-15.5); WBC 12.1 k/uL (3.8-10.6)
[2022-05-21 16:45] LABS: INR 1.1 (<1.2); Partial Thromboplastin Time 27.1 sec (22.0-30.0); Prothrombin Time 11.7 sec (9.0-12.0)
[2022-05-21 17:03] LABS: ALT 26 U/L (4-34); AST 42 U/L (14-36); African American GFR (CKD) >90 (>60 ml/min/1.73 sqM); Alkaline Phosphatase 70 U/L (38-126); Anion Gap 12 mmol/L; Blood Urea Nitrogen 21 mg/dL (7-17); Calcium 8.2 mg/dL (8.4-10.2); Carbon Dioxide 20 mmol/L (22-30); Chloride 96 mmol/L (98-107); Glucose 128 mg/dL (74-99); Non-African American GFR(CKD) >90 (>60 ml/min/1.73 sqM); Potassium 3.7 mmol/L (3.5-5.1); Sodium 128 mmol/L (137-145); Total Bilirubin 0.8 mg/dL (0.2-1.3)
[2022-05-21 18:54] LABS: Appearance,Urine Cloudy (Clear); Bacteria,Urine Many /hpf; Bilirubin,Urine Negative (Negative); Blood,Urine Large (Negative); Color,Urine Yellow; Glucose,Urine (UA) Negative (Negative); Hyaline Casts,Urine 1 /lpf (0-2); Ketones,Urine 1+ (Negative); Leukocyte Esterase,Urine Moderate (Negative); Mucus,Urine Moderate /hpf; Nitrite,Urine Negative (Negative); Protein,Urine 1+ (Negative); RBC,Urine 26 /hpf (0-5); Specific Gravity,Urine 1.019 (1.001-1.035); Squamous Epithelial Cell,Urine 6 /hpf (0-4); Urobilinogen,Urine <2.0 mg/dL (<2.0); WBC,Urine 75 /hpf (0-5)
[2022-05-21] MEDS ORDERED: cefTRIAXone IN SWFI 1,000 MG/10 ML SYRINGE IVP STA (20:40)
[2022-05-21] MEDS ORDERED: IPRATROPIUM-ALBUTEROL 3 ML NEB INHALATION STA (20:41)
--- NOTE | 2022-05-21 20:44 | ED ---
Altered Mental Status HPI - General Chief Complaint: Altered Mental Status Stated Complaint: Poss UTI Time Seen by Provider: 05/21/22 20:20 Source: patient, RN notes reviewed Mode of arrival: wheelchair Limitations: no limitations - History of Present Illness Initial Comments: This is a 72-year-old female who presents to the emergency department for weak ness and coughing. States that over the last 2-3 days, she has been sleeping a significant amount and feels overall very weak. She has pulmonary fibrosis and has been using her inhaler without any relief. She reports some associated difficulty breathing. Denies any chest pain. Denies any sick contacts. She has not measured any fevers at home. Denies any fevers, chills, sore throat, chest pain, palpitations, abdominal pain, nausea, vomiting, diarrhea, back pain, or headaches. MD Complaint: weakness Onset/Timin -: days(s) Associated Symptoms: cough - Related Data Home Medications Medication Instructions Recorded Confirmed Albuterol Sulfate [Proair Hfa] 1 puff INHALATION RT-QID PRN 10/29/17 05/21/22 Aspirin [Adult Low Dose Aspirin EC] 81 mg PO DAILY 10/29/17 05/21/22 Calcium Carbonate/Vitamin D3 1 tab PO DAILY 10/29/17 05/21/22 [Calcium 500-Vit D3 200 Tablet] Etanercept [Enbrel] 50 mg IM TU 10/29/17 05/21/22 Fluticasone Nasal [place] [Flonase 1 spray EA NOSTRIL DAILY 10/29/17 05/21/22 Nasal [place]] L.acidoph,Paracasei, B.lactis 1 cap PO DAILY 10/29/17 05/21/22 [Probiotic] Montelukast [Singulair] 10 mg PO 10/29/17 05/21/22 Levothyroxine Sodium [Synthroid] 100 mcg PO DAILY 08/22/18 05/21/22 Alendronate Sodium [Fosamax] 70 mg PO TU 12/27/20 05/21/22 Apixaban [Eliquis] 5 mg PO BID 12/27/20 05/21/22 Atorvastatin [Lipitor] 40 mg PO 12/27/20 05/21/22 Budesonide-Formot 160-4.5 Mcg 2 puff INHALATION RT-BID 12/27/20 05/21/22 [Symbicort 160-4.5 Mcg Inhaler] Cholecalciferol [Vitamin D3 (25 50 mcg PO DAILY 12/27/20 05/21/22 Mcg = 1000 Iu)] Ubidecarenone [Co Q-10] 100 mg PO DAILY 12/27/20 05/21/22 DULoxetine HCL [Cymbalta] 30 mg PO BID 05/21/22 05/21/22 Metoprolol Tartrate [Lopressor] 12.5 mg PO DAILY 05/21/22 05/21/22 Psyllium [place] [Fiber Capsule] 0.4 gm PO BID 05/21/22 05/21/22 amLODIPine [Norvasc] 2.5 mg PO DAILY 05/21/22 05/21/22 Allergies Allergy/AdvReac Type Severity Reaction Status Date / Time ciprofloxacin [From Cipro] Allergy GETS A Verified 05/21/22 21:26 COLD SORE loratadine [From Claritin] Allergy Rash/Hives Verified 05/21/22 21:26 nitrofurantoin Allergy POSSIBLY Verified 05/21/22 21:26 [From Macrobid] CAUSE THE PULMONARY FIBROSIS Sulfa (Sulfonamide Allergy Rash/Hives Verified 05/21/22 21:26 Antibiotics) Review of Systems ROS Statement: Those systems with pertinent positive or pertinent negative responses have been documented in the HPI. ROS Other: All systems not noted in ROS Statement are negative. Past Medical History Past Medical History: Rheumatoid Arthritis (RA) Additional Past Medical History / Comment(s): PULMONARY FIBROSIS. URINARY FREQUENCY. History of Any Multi-Drug Resistant Organisms: None Reported Past Surgical History: Hernia Repair, Orthopedic Surgery Additional Past Surgical History / Comment(s): BILATERAL CATARACT. LUNG BIOPSY. RIGHT ROTATOR CUFF. CARPAL TUNNEL. Past Anesthesia/Blood Transfusion Reactions: Motion Sickness Additional Past Anesthesia/Blood Transfusion Reaction / Comment(s): DIFFICULT TO WAKE UP Past Psychological History: No Psychological Hx Reported Past Alcohol Use History: None Reported Past Drug Use History: None Reported General Exam Limitations: no limitations General appearance: alert, other (fatigued) Head exam: Present: atraumatic, normocephalic, normal inspection Respiratory exam: Present: wheezes. Absent: rales, rhonchi Cardiovascular Exam: Present: regular rate, normal rhythm GI/Abdominal exam: Present: soft, normal bowel sounds. Absent: distended, tenderness, guarding, rebound, rigid Neurological exam: Present: alert, oriented X3, CN II-XII intact Psychiatric exam: Present: normal affect, normal mood Skin exam: Present: warm, dry, intact, normal color. Absent: rash Course Vital Signs 05/21/22 05/21/22 05/21/22 14:19 21:24 21:44 Temperature 99.2 F 99.0 F Pulse Rate 60 112 H Respiratory 16 24 Rate Blood Pressure 107/57 127/74 O2 Sat by Pulse 100 92 L Oximetry 05/21/22 05/21/22 05/22/22 22:19 22:58 00:59 Temperature 99.3 F Pulse Rate 112 H 117 H 105 H Respiratory 20 18 Rate Blood Pressure 147/84 O2 Sat by Pulse 94 L 94 L Oximetry Medical Decision Making - Medical Decision Making This is a 72-year-old female who presents to the emergency department for weakness. Lab work reveals leukocytosis. She is also dehydrated with a sodium of 128. Urinalysis is positive for a urinary tract infection and she also tested positive for influenza A. She was given a 1.5 L bolus of normal saline and ceftriaxone, with blood cultures obtained prior. Patient meets sepsis criteria with tachycardia, elevated respiratory rate, and leukocytosis. She does have a confirmed source of infection with the urinary tract infection and influenza A. She was started on maintenance fluids and Tamiflu. Patient will be admitted to medicine for sepsis and treatment with IV antibiotics. This case was discussed in detail with the attending ED physician. Presentation, findings, and treatment plan discussed in detail as well. - Lab Data Result diagrams: 05/21/22 16:13 05/21/22 16:13 Lab Results 05/21/22 05/21/22 05/21/22 Range/Units 16:13 16:13 16:13 WBC 12.1 H (3.8-10.6) k/uL RBC 4.36 (3.80-5.40) m/uL Hgb 14.0 (11.4-16.0) gm/dL Hct 39.3 (34.0-46.0) % MCV 90.0 (80.0-100.0) fL MCH 32.0 (25.0-35.0) pg MCHC 35.6 (31.0-37.0) g/dL RDW 12.6 (11.5-15.5) % Plt Count 187 (150-450) k/uL MPV 7.2 Neutrophils % 88 % Lymphocytes % 4 % Monocytes % 6 % Eosinophils % 0 % Basophils % 0 % Neutrophils # 10.7 H (1.3-7.7) k/uL Lymphocytes # 0.5 L (1.0-4.8) k/uL Monocytes # 0.7 (0-1.0) k/uL Eosinophils # 0.0 (0-0.7) k/uL Basophils # 0.0 (0-0.2) k/uL PT 11.7 (9.0-12.0) sec INR 1.1 (<1.2) APTT 27.1 (22.0-30.0) sec Sodium 128 L (137-145) mmol/L Potassium 3.7 (3.5-5.1) mmol/L Chloride 96 L (98-107) mmol/L Carbon Dioxide 20 L (22-30) mmol/L Anion Gap 12 mmol/L BUN 21 H (7-17) mg/dL Creatinine 0.53 (0.52-1.04) mg/dL Est GFR (CKD-EPI)AfAm >90 (>60 ml/min/1.73 sqM) Est GFR (CKD-EPI)NonAf >90 (>60 ml/min/1.73 sqM) Glucose 128 H (74-99) mg/dL Plasma Lactic Acid Jeremy (0.7-2.0) mmol/L Calcium 8.2 L (8.4-10.2) mg/dL Total Bilirubin 0.8 (0.2-1.3) mg/dL AST 42 H (14-36) U/L ALT 26 (4-34) U/L Alkaline Phosphatase 70 (38-126) U/L Troponin I (0.000-0.034) ng/mL Total Protein 8.0 (6.3-8.2) g/dL Albumin 4.0 (3.5-5.0) g/dL Urine Color Urine Appearance (Clear) Urine pH (5.0-8.0) Ur Specific [place] (1.001-1.035) Urine Protein (Negative) Urine Glucose (UA) (Negative) Urine Ketones (Negative) Urine Blood (Negative) Urine Nitrite (Negative) Urine Bilirubin (Negative) Urine Urobilinogen (<2.0) mg/dL Ur Leukocyte Esterase (Negative) Urine RBC (0-5) /hpf Urine WBC (0-5) /hpf Ur Squamous Epith Cells (0-4) /hpf Urine Bacteria (None) /hpf Hyaline Casts (0-2) /lpf Urine Mucus (None) /hpf Coronavirus (PCR) (Not Detectd) Influenza Type A RNA (Not Detectd) Influenza Type B (PCR) (Not Detectd) 05/21/22 05/21/22 05/21/22 Range/Units 16:13 16:13 21:07 WBC (3.8-10.6) k/uL RBC (3.80-5.40) m/uL Hgb (11.4-16.0) gm/dL Hct (34.0-46.0) % MCV (80.0-100.0) fL MCH (25.0-35.0) pg MCHC (31.0-37.0) g/dL RDW (11.5-15.5) % Plt Count (150-450) k/uL MPV Neutrophils % % Lymphocytes % % Monocytes % % Eosinophils % % Basophils % % Neutrophils # (1.3-7.7) k/uL Lymphocytes # (1.0-4.8) k/uL Monocytes # (0-1.0) k/uL Eosinophils # (0-0.7) k/uL Basophils # (0-0.2) k/uL PT (9.0-12.0) sec INR (<1.2) APTT (22.0-30.0) sec Sodium (137-145) mmol/L Potassium (3.5-5.1) mmol/L Chloride (98-107) mmol/L Carbon Dioxide (22-30) mmol/L Anion Gap mmol/L BUN (7-17) mg/dL Creatinine (0.52-1.04) mg/dL Est GFR (CKD-EPI)AfAm (>60 ml/min/1.73 sqM) Est GFR (CKD-EPI)NonAf (>60 ml/min/1.73 sqM) Glucose (74-99) mg/dL Plasma Lactic Acid Jeremy 1.5 (0.7-2.0) mmol/L Calcium (8.4-10.2) mg/dL Total Bilirubin (0.2-1.3) mg/dL AST (14-36) U/L ALT (4-34) U/L Alkaline Phosphatase (38-126) U/L Troponin I <0.012 (0.000-0.034) ng/mL Total Protein (6.3-8.2) g/dL Albumin (3.5-5.0) g/dL Urine Color Yellow Urine Appearance Cloudy H (Clear) Urine pH 6.0 (5.0-8.0) Ur Specific [place] 1.019 (1.001-1.035) Urine Protein 1+ H (Negative) Urine Glucose (UA) Negative (Negative) Urine Ketones 1+ H (Negative) Urine Blood Large H (Negative) Urine Nitrite Negative (Negative) Urine Bilirubin Negative (Negative) Urine Urobilinogen <2.0 (<2.0) mg/dL Ur Leukocyte Esterase Moderate H (Negative) Urine RBC 26 H (0-5) /hpf Urine WBC 75 H (0-5) /hpf Ur Squamous Epith Cells 6 H (0-4) /hpf Urine Bacteria Many H (None) /hpf Hyaline Casts 1 (0-2) /lpf Urine Mucus Moderate H (None) /hpf Coronavirus (PCR) (Not Detectd) Influenza Type A RNA (Not Detectd) Influenza Type B (PCR) (Not Detectd) 05/21/22 05/21/22 Range/Units 21:07 21:07 WBC (3.8-10.6) k/uL RBC (3.80-5.40) m/uL Hgb (11.4-16.0) gm/dL Hct (34.0-46.0) % MCV (80.0-100.0) fL MCH (25.0-35.0) pg MCHC (31.0-37.0) g/dL RDW (11.5-15.5) % Plt Count (150-450) k/uL MPV Neutrophils % % Lymphocytes % % Monocytes % % Eosinophils % % Basophils % % Neutrophils # (1.3-7.7) k/uL Lymphocytes # (1.0-4.8) k/uL Monocytes # (0-1.0) k/uL Eosinophils # (0-0.7) k/uL Basophils # (0-0.2) k/uL PT (9.0-12.0) sec INR (<1.2) APTT (22.0-30.0) sec Sodium (137-145) mmol/L Potassium (3.5-5.1) mmol/L Chloride (98-107) mmol/L Carbon Dioxide (22-30) mmol/L Anion Gap mmol/L BUN (7-17) mg/dL Creatinine (0.52-1.04) mg/dL Est GFR (CKD-EPI)AfAm (>60 ml/min/1.73 sqM) Est GFR (CKD-EPI)NonAf (>60 ml/min/1.73 sqM) Glucose (74-99) mg/dL Plasma Lactic Acid Jeremy (0.7-2.0) mmol/L Calcium (8.4-10.2) mg/dL Total Bilirubin (0.2-1.3) mg/dL AST (14-36) U/L ALT (4-34) U/L Alkaline Phosphatase (38-126) U/L Troponin I (0.000-0.034) ng/mL Total Protein (6.3-8.2) g/dL Albumin (3.5-5.0) g/dL Urine Color Urine Appearance (Clear) Urine pH (5.0-8.0) Ur Specific [place] (1.001-1.035) Urine Protein (Negative) Urine Glucose (UA) (Negative) Urine Ketones (Negative) Urine Blood (Negative) Urine Nitrite (Negative) Urine Bilirubin (Negative) Urine Urobilinogen (<2.0) mg/dL Ur Leukocyte Esterase (Negative) Urine RBC (0-5) /hpf Urine WBC (0-5) /hpf Ur Squamous Epith Cells (0-4) /hpf Urine Bacteria (None) /hpf Hyaline Casts (0-2) /lpf Urine Mucus (None) /hpf Coronavirus (PCR) Not Detected (Not Detectd) Influenza Type A RNA Detected H (Not Detectd) Influenza Type B (PCR) Not Detected (Not Detectd) - EKG Data EKG Comments: Sinus tachycardia. Ventricular rate 135 bpm, NV interval 161 ms, QRS duration 97 ms, QTC 433 ms. EKG interpreted by myself and MELONIE North - Radiology Data Radiology results: report reviewed, image reviewed Disposition Clinical Impression: UTI (urinary tract infection), Influenza A, Sepsis Disposition: ADMITTED IP TO THIS HOSP
[2022-05-21] MEDS: SODIUM CHLORIDE 0.9% 500 ML 500 ML IV SCH ×3 (21:02→22:15)
[2022-05-21] MEDS ORDERED: IBUPROFEN 400 MG TAB PO PRN (23:02)
[2022-05-21] MEDS ORDERED: NALOXONE 0.4 MG/ML 1 ML VIAL IV PRN (23:02)
[2022-05-21] MEDS ORDERED: HYDROcodone/APAP 5-325MG 1 EACH TAB PO PRN (23:02)
[2022-05-21] MEDS ORDERED: ACETAMINOPHEN TAB 325 MG TAB PO PRN (23:02)
[2022-05-21] MEDS ORDERED: ONDANSETRON 4 MG/2 ML VIAL IVP PRN (23:02)
[2022-05-21] MEDS: SODIUM CHLORIDE 0.9% 1,000 ML IV SCH (23:18)
[2022-05-21] MEDS: OSELTAMIVIR 75 MG CAP PO SCH (23:38)
--- NOTE | 2022-05-22 01:39 | P.HPIM ---
History of Present Illness H&P Date: 05/21/22 The patient is a 72-year-old female with a PMH of A. fib on Eliquis, pulmonary fibrosis, hypertension, hyperlipidemia, and hypothyroidism who presented to the emergency room with complaints of cough and fatigue. The patient reports that over the past 3 days, she has been experiencing gradually worsening cough with body aches and fatigue. Reports that the cough is nonproductive. She also reports increased urinary frequency with malodorous urine and some urinary urgency. Patient also reports somewhat decreased oral intake due to her symptoms over the past few days. Denied experiencing chest discomfort or shortness of breath. Denied fever, chills, nausea, vomiting, abdominal pain, diarrhea. In the emergency room, the patient was noted to be hypoxic with SpO2 92% on room air with pulse 112 and BP 127/74. Chest x-ray revealed pulmonary fibrotic changes unchanged from prior. EKG revealed sinus tachycardia with APCs at 135 bpm. Laboratory evaluation was remarkable for influenza type a positive, UA consistent with UTI, and WBC count 12.1. Review of systems: Pertinent positives and negatives as discussed in HPI, a complete review of systems was performed and all other systems are negative. Physical examination: General: non toxic, no distress, appears at stated age, normal weight Derm: no unusual rashes/lesions, warm Head: atraumatic, normocephalic, symmetric Eyes: EOMI, no lid lag, anicteric sclera, pupils equal round reactive to light ENT: Nose and ears atraumatic Neck: No cervical lymphadenopathy, trachea midline, supple Mouth: no lip lesion, mucus membranes moist Cardiovascular: S1S2 reg, no murmur, positive dorsalis pedis pulse bilateral, no edema Lungs: Scattered rales without wheezing or rhonchi, no accessory muscle use Abdominal: soft, nontender to palpation, no guarding Ext: muscle strength 5 out of 5 in all 4 extremities grossly, no gross muscle atrophy, no contractures, Neuro: CN II-XI grossly intact, no gross focal neuro deficits Psych: Alert, oriented, appropriate affect Assessment/plan Sepsis secondary to UTI with influenza type infection -Continue with ceftriaxone -Follow up urine culture -Continue Tamiflu -IV fluids Hyponatremia, hypochloremic -Likely due to poor oral intake -Continue with IV fluids and monitor Chronic conditions: Pulmonary fibrosis, A. fib, hypertension, hyperlipidemia, hypothyroidism -Continue with home meds DVT prophylaxis -Eliquis The patient is admitted with an anticipated greater than 2 midnight stay for evaluation of sepsis UTI CODE STATUS: Full Code Discussed with: Patient Anticipated discharge date: 05/[address]: Home Past Medical History Past Medical History: Rheumatoid Arthritis (RA) Additional Past Medical History / Comment(s): PULMONARY FIBROSIS. URINARY FREQUENCY. History of Any Multi-Drug Resistant Organisms: None Reported Past Surgical History: Hernia Repair, Orthopedic Surgery Additional Past Surgical History / Comment(s): BILATERAL CATARACT. LUNG BIOPSY. RIGHT ROTATOR CUFF. CARPAL TUNNEL. Past Anesthesia/Blood Transfusion Reactions: Motion Sickness Additional Past Anesthesia/Blood Transfusion Reaction / Comment(s): DIFFICULT TO WAKE UP Past Psychological History: No Psychological Hx Reported Past Alcohol Use History: None Reported Past Drug Use History: None Reported - Past Family History Mother Family Medical History: Cancer Medications and Allergies Home Medications Medication Instructions Recorded Confirmed Type Albuterol Sulfate [Proair Hfa] 1 puff INHALATION RT-QID PRN 10/29/17 05/21/22 History Aspirin [Adult Low Dose Aspirin EC] 81 mg PO DAILY 10/29/17 05/21/22 History Calcium Carbonate/Vitamin D3 1 tab PO DAILY 10/29/17 05/21/22 History [Calcium 500-Vit D3 200 Tablet] Etanercept [Enbrel] 50 mg IM TU 10/29/17 05/21/22 History Fluticasone Nasal [place] [Flonase 1 spray EA NOSTRIL DAILY 10/29/17 05/21/22 History Nasal [place]] L.acidoph,Paracasei, B.lactis 1 cap PO DAILY 10/29/17 05/21/22 History [Probiotic] Montelukast [Singulair] 10 mg PO 10/29/17 05/21/22 History Levothyroxine Sodium [Synthroid] 100 mcg PO DAILY 08/22/18 05/21/22 History Alendronate Sodium [Fosamax] 70 mg PO TU 12/27/20 05/21/22 History Apixaban [Eliquis] 5 mg PO BID 12/27/20 05/21/22 History Atorvastatin [Lipitor] 40 mg PO 12/27/20 05/21/22 History Budesonide-Formot 160-4.5 Mcg 2 puff INHALATION RT-BID 12/27/20 05/21/22 History [Symbicort 160-4.5 Mcg Inhaler] Cholecalciferol [Vitamin D3 (25 50 mcg PO DAILY 12/27/20 05/21/22 History Mcg = 1000 Iu)] Ubidecarenone [Co Q-10] 100 mg PO DAILY 12/27/20 05/21/22 History DULoxetine HCL [Cymbalta] 30 mg PO BID 05/21/22 05/21/22 History Metoprolol Tartrate [Lopressor] 12.5 mg PO DAILY 05/21/22 05/21/22 History Psyllium Husk [Fiber Capsule] 0.4 gm PO BID 05/21/22 05/21/22 History amLODIPine [Norvasc] 2.5 mg PO DAILY 05/21/22 05/21/22 History Allergies Allergy/AdvReac Type Severity Reaction Status Date / Time ciprofloxacin [From Cipro] Allergy GETS A Verified 05/21/22 21:26 COLD SORE loratadine [From Claritin] Allergy Rash/Hives Verified 05/21/22 21:26 nitrofurantoin Allergy POSSIBLY Verified 05/21/22 21:26 [From Macrobid] CAUSE THE PULMONARY FIBROSIS Sulfa (Sulfonamide Allergy Rash/Hives Verified 05/21/22 21:26 Antibiotics) Physical Exam Vitals: Vital Signs Temp Pulse Resp BP Pulse Ox 05/22/22 00:59 99.3 F 105 H 18 147/84 94 L 05/21/22 22:58 117 H 20 94 L 05/21/22 22:19 112 H 05/21/22 21:44 99.0 F 05/21/22 21:24 112 H 24 127/74 92 L 05/21/22 14:19 99.2 F 60 16 107/57 100 Intake and Output 05/21/22 05/21/22 05/22/22 14:59 22:59 06:59 Other: Weight 56.699 kg Results CBC & Chem 7: 05/21/22 16:13 05/21/22 16:13 Labs: Abnormal Lab Results - Last 24 Hours (Table) 05/21/22 05/21/22 05/21/22 Range/Units 16:13 16:13 16:13 WBC 12.1 H (3.8-10.6) k/uL Neutrophils # 10.7 H (1.3-7.7) k/uL Lymphocytes # 0.5 L (1.0-4.8) k/uL Sodium 128 L (137-145) mmol/L Chloride 96 L (98-107) mmol/L Carbon Dioxide 20 L (22-30) mmol/L BUN 21 H (7-17) mg/dL Glucose 128 H (74-99) mg/dL Calcium 8.2 L (8.4-10.2) mg/dL AST 42 H (14-36) U/L Urine Appearance Cloudy H (Clear) Urine Protein 1+ H (Negative) Urine Ketones 1+ H (Negative) Urine Blood Large H (Negative) Ur Leukocyte Esterase Moderate H (Negative) Urine RBC 26 H (0-5) /hpf Urine WBC 75 H (0-5) /hpf Ur Squamous Epith Cells 6 H (0-4) /hpf Urine Bacteria Many H (None) /hpf Urine Mucus Moderate H (None) /hpf Influenza Type A RNA (Not Detectd) 05/21/22 Range/Units 21:07 WBC (3.8-10.6) k/uL Neutrophils # (1.3-7.7) k/uL Lymphocytes # (1.0-4.8) k/uL Sodium (137-145) mmol/L Chloride (98-107) mmol/L Carbon Dioxide (22-30) mmol/L BUN (7-17) mg/dL Glucose (74-99) mg/dL Calcium (8.4-10.2) mg/dL AST (14-36) U/L Urine Appearance (Clear) Urine Protein (Negative) Urine Ketones (Negative) Urine Blood (Negative) Ur Leukocyte Esterase (Negative) Urine RBC (0-5) /hpf Urine WBC (0-5) /hpf Ur Squamous Epith Cells (0-4) /hpf Urine Bacteria (None) /hpf Urine Mucus (None) /hpf Influenza Type A RNA Detected H (Not Detectd) Microbiology - Last 24 Hours (Table) 05/21/22 16:13 Urine Culture - Preliminary Urine,Voided
[2022-05-22] MEDS: LEVOTHYROXINE 100 MCG TAB PO SCH (06:49)
[2022-05-22] MEDS: SODIUM CHLORIDE 0.9% 1,000 ML IV SCH ×2 (07:35→16:58)
[2022-05-22] MEDS: SYMBICORT 160-4.5 MCG INHALER INHALATION SCH ×2 (08:40→19:49)
[2022-05-22 08:53] LABS: HCT 34.3 % (37.2-46.3); MCH 32.1 pg (27.0-32.0); MCV 91.7 fL (80.0-97.0); Mean Platelet Volume 9.9 fL (9.5-12.2); NRBC Per 100 WBC 0 /100 WBCS (0.0-0.0); Platelet Count 180 X 10*3/uL (140-440); RBC 3.74 X 10*6/uL (4.10-5.20); RDW 13.2 % (11.5-14.5); WBC 10.25 X 10*3/uL (4.50-10.00)
[2022-05-22] MEDS: CALCIUM CARB-VIT D 500 MG-5 MCG TAB PO SCH (08:59)
[2022-05-22] MEDS: amLODIPine 2.5 MG TAB PO SCH (08:59)
[2022-05-22] MEDS: APIXABAN 5 MG TAB PO SCH ×2 (08:59→20:58)
[2022-05-22] MEDS: CHOLECALCIFEROL 25 MCG (1000 IU) TABLET PO SCH (08:59)
[2022-05-22] MEDS: METOPROLOL TARTRATE 25 MG TAB PO SCH (09:00)
[2022-05-22] MEDS ORDERED: NON FORMULARY DRUG (Ubidecarenone [Co Q-10] 100 MG Capsule) PO SCH (09:00)
[2022-05-22] MEDS: LIPASE 5,000/PROTEASE 17,000/AMYLASE 24,000 PO SCH (09:00)
[2022-05-22] MEDS: OSELTAMIVIR 75 MG CAP PO SCH (09:00)
[2022-05-22] MEDS ORDERED: PSYLLIUM HUSK 100% 6 GM PACKET PO SCH (09:00)
[2022-05-22] MEDS: DULoxetine HCL 30 MG CAPSULE.DR PO SCH (09:00)
[2022-05-22] MEDS: PANTOPRAZOLE 40 MG/10 ML VIAL IV SCH (09:04)
[2022-05-22] MEDS: FLUTICASONE 50MCG/SPRAY NASAL 16GM EA NOSTRIL SCH (09:04)
[2022-05-22 09:17] LABS: African American GFR (CKD) 110.5 (60.0-200.0); Anion Gap 7.5 mmol/L (10.00-18.00); BUN/Creat Ratio 26.6 Ratio (12.00-20.00); Blood Urea Nitrogen 13.3 mg/dL (9.0-27.0); Calcium 7.5 mg/dL (8.7-10.3); Carbon Dioxide 22.5 mmol/L (20.0-27.5); Non-African American GFR(CKD) 95.3 (60.0-200.0); Potassium 3.2 mmol/L (3.5-5.5)
--- NOTE | 2022-05-22 13:00 | P.PN ---
Subjective Progress Note Date: 05/22/22 Patient still complaining of sweats, dyspnea, cough. UA appears contaminated with 6 squamous cells, not convinced of UTI Gen: awake, alert HEENT: normocephalic, atraumatic, good hearing acuity, moist mucous membranes Resp: good air exchange, breathing comfortably with no accessory muscle use, coarse breath sounds with diffuse crackles CVS: good distal perfusion x 4, GI: soft, NTTP, ND : no SPT, no CVAT, vickers catheter not present MSK: no pitting edema, no clubbing Neuro: non-focal, moving all extremities Psych: cooperative, euthymic mood Assessment/plan: Sepsis secondary to influenza with possible overlying bacterial infection -Continue with ceftriaxone -Follow up urine culture -Continue Tamiflu -IV fluids -Pending pro-calcitonin Hyponatremia, hypochloremic -Likely due to poor oral intake -Continue with IV fluids and monitor Chronic conditions: Pulmonary fibrosis, A. fib, hypertension, hyperlipidemia, hypothyroidism -Continue with home meds DVT prophylaxis -Eliquis The patient is admitted with an anticipated greater than 2 midnight stay for evaluation of sepsis UTI CODE STATUS: Full Code Discussed with: Patient Anticipated discharge date: 05/[address]: Home Objective - Vital Signs Vital signs: Vital Signs Temp 99.3 F 05/22/22 00:59 Pulse 85 05/22/22 10:00 Resp 19 05/22/22 10:00 BP 142/75 05/22/22 10:00 Pulse Ox 96 05/22/22 10:00 FiO2 Intake & Output 05/21/22 05/22/22 05/22/22 18:59 06:59 18:59 Weight 56.699 kg - Labs CBC & Chem 7: 05/22/22 05:36 05/22/22 05:36 Labs: Abnormal Lab Results - Last 24 Hours (Table) 05/21/22 05/21/22 05/21/22 Range/Units 16:13 16:13 16:13 WBC 12.1 H (3.8-10.6) k/uL RBC (4.10-5.20) X 10*6/uL Hct (37.2-46.3) % MCH (27.0-32.0) pg Neutrophils # 10.7 H (1.3-7.7) k/uL Lymphocytes # 0.5 L (1.0-4.8) k/uL Sodium 128 L (137-145) mmol/L Potassium (3.5-5.5) mmol/L Chloride 96 L (98-107) mmol/L Carbon Dioxide 20 L (22-30) mmol/L Anion Gap (10.00-18.00) mmol/L BUN 21 H (7-17) mg/dL Creatinine (0.6-1.5) mg/dL BUN/Creatinine Ratio (12.00-20.00) Ratio Glucose 128 H (74-99) mg/dL Calcium 8.2 L (8.4-10.2) mg/dL AST 42 H (14-36) U/L Urine Appearance Cloudy H (Clear) Urine Protein 1+ H (Negative) Urine Ketones 1+ H (Negative) Urine Blood Large H (Negative) Ur Leukocyte Esterase Moderate H (Negative) Urine RBC 26 H (0-5) /hpf Urine WBC 75 H (0-5) /hpf Ur Squamous Epith Cells 6 H (0-4) /hpf Urine Bacteria Many H (None) /hpf Urine Mucus Moderate H (None) /hpf Influenza Type A RNA (Not Detectd) 05/21/22 05/22/22 05/22/22 Range/Units 21:07 05:36 05:36 WBC 10.25 H (3.8-10.6) k/uL RBC 3.74 L (4.10-5.20) X 10*6/uL Hct 34.3 L (37.2-46.3) % MCH 32.1 H (27.0-32.0) pg Neutrophils # (1.3-7.7) k/uL Lymphocytes # (1.0-4.8) k/uL Sodium 130 L (137-145) mmol/L Potassium 3.2 L (3.5-5.5) mmol/L Chloride (98-107) mmol/L Carbon Dioxide (22-30) mmol/L Anion Gap 7.50 L (10.00-18.00) mmol/L BUN (7-17) mg/dL Creatinine 0.5 L (0.6-1.5) mg/dL BUN/Creatinine Ratio 26.60 H (12.00-20.00) Ratio Glucose 115 H (74-99) mg/dL Calcium 7.5 L (8.4-10.2) mg/dL AST (14-36) U/L Urine Appearance (Clear) Urine Protein (Negative) Urine Ketones (Negative) Urine Blood (Negative) Ur Leukocyte Esterase (Negative) Urine RBC (0-5) /hpf Urine WBC (0-5) /hpf Ur Squamous Epith Cells (0-4) /hpf Urine Bacteria (None) /hpf Urine Mucus (None) /hpf Influenza Type A RNA Detected H (Not Detectd) Microbiology - Last 24 Hours (Table) 05/21/22 16:13 Urine Culture - Preliminary Urine,Voided
[2022-05-22] MEDS: MONTELUKAST 10 MG TAB PO SCH (20:58)
[2022-05-22] MEDS: ATORVASTATIN 40 MG TAB PO SCH (20:58)
[2022-05-23] MEDS: DULoxetine HCL 30 MG CAPSULE.DR PO SCH ×3 (00:07→21:36)
[2022-05-23] MEDS: OSELTAMIVIR 75 MG CAP PO SCH ×3 (00:07→21:36)
[2022-05-23] MEDS: SODIUM CHLORIDE 0.9% 1,000 ML IV SCH ×4 (00:08→21:40)
[2022-05-23] MEDS: LEVOTHYROXINE 100 MCG TAB PO SCH (06:58)
[2022-05-23] MEDS: SYMBICORT 160-4.5 MCG INHALER INHALATION SCH ×2 (07:45→20:42)
[2022-05-23] MEDS: CALCIUM CARB-VIT D 500 MG-5 MCG TAB PO SCH (09:55)
[2022-05-23] MEDS: METOPROLOL TARTRATE 25 MG TAB PO SCH (09:55)
[2022-05-23] MEDS: PANTOPRAZOLE 40 MG/10 ML VIAL IV SCH (09:56)
[2022-05-23] MEDS: amLODIPine 2.5 MG TAB PO SCH (09:56)
[2022-05-23] MEDS: APIXABAN 5 MG TAB PO SCH ×2 (09:56→21:36)
[2022-05-23] MEDS: LIPASE 5,000/PROTEASE 17,000/AMYLASE 24,000 PO SCH ×2 (09:56→10:03)
[2022-05-23] MEDS: CHOLECALCIFEROL 25 MCG (1000 IU) TABLET PO SCH (09:56)
[2022-05-23] MEDS: FLUTICASONE 50MCG/SPRAY NASAL 16GM EA NOSTRIL SCH (10:46)
--- NOTE | 2022-05-23 12:45 | P.PN ---
Subjective Progress Note Date: 05/23/22 Patient reports feeling a little better. UCx growing GNRs Gen: awake, alert HEENT: normocephalic, atraumatic, good hearing acuity, moist mucous membranes Resp: good air exchange, breathing comfortably with no accessory muscle use, coarse breath sounds with diffuse crackles CVS: good distal perfusion x 4, GI: soft, NTTP, ND : no SPT, no CVAT, vickers catheter not present MSK: no pitting edema, no clubbing Neuro: non-focal, moving all extremities Psych: cooperative, euthymic mood Assessment/plan: Sepsis secondary to influenza Complicated UTI -Continue with ceftriaxone -Follow up urine culture = GNRs -Continue Tamiflu -IV fluids -Pending pro-calcitonin Hyponatremia, hypochloremic -Likely due to poor oral intake -Continue with IV fluids and monitor Chronic conditions: Pulmonary fibrosis, A. fib, hypertension, hyperlipidemia, hypothyroidism -Continue with home meds DVT prophylaxis -Eliquis The patient is admitted with an anticipated greater than 2 midnight stay for evaluation of sepsis UTI CODE STATUS: Full Code Discussed with: Patient Anticipated discharge date: 05/[address]: Home Objective - Vital Signs Vital signs: Vital Signs Temp 98.3 F 05/23/22 08:11 Pulse 118 H 05/23/22 08:11 Resp 16 05/23/22 08:11 BP 109/71 05/23/22 08:11 Pulse Ox 96 05/23/22 08:11 FiO2 Intake & Output 05/22/22 05/23/22 05/23/22 18:59 06:59 18:59 Output Total 650 Balance -650 Weight 56.699 kg Output: Urine 650 Straight 650 Other: # Voids 3 4 - Labs CBC & Chem 7: 05/22/22 05:36 05/22/22 05:36 Labs: Abnormal Lab Results - Last 24 Hours (Table) 05/22/22 Range/Units 05:36 Procalcitonin 0.19 H (0.02-0.09) ng/mL Microbiology - Last 24 Hours (Table) 05/21/22 20:53 Blood Culture - Preliminary Blood No Growth after 24 hours 05/21/22 21:07 Blood Culture - Preliminary Blood No Growth after 24 hours 05/21/22 16:13 Urine Culture - Preliminary Urine,Voided Gram Neg Bacilli
[2022-05-23] MEDS: MONTELUKAST 10 MG TAB PO SCH (21:36)
[2022-05-23] MEDS: ATORVASTATIN 40 MG TAB PO SCH (21:36)
[2022-05-24] MEDS ORDERED: polyethylene glycoL 3350 17 GM POWD.PACK PO STA (01:57)
[2022-05-24] MEDS: SODIUM CHLORIDE 0.9% 1,000 ML IV SCH ×2 (04:35→08:36)
[2022-05-24] MEDS: LEVOTHYROXINE 100 MCG TAB PO SCH (06:14)
[2022-05-24] MEDS: SYMBICORT 160-4.5 MCG INHALER INHALATION SCH (07:26)
[2022-05-24 08:05] LABS: ALT 25 U/L (4-34); AST 49 U/L (14-36); African American GFR (CKD) >90 (>60 ml/min/1.73 sqM); Albumin 2.9 g/dL (3.5-5.0); Albumin/Globulin Ratio 0.9; Alkaline Phosphatase 56 U/L (38-126); Anion Gap 4 mmol/L; Blood Urea Nitrogen 2 mg/dL (7-17); Calcium 7.1 mg/dL (8.4-10.2); Carbon Dioxide 30 mmol/L (22-30); Chloride 99 mmol/L (98-107); Globulin 3.3 g/dL; Glucose 103 mg/dL (74-99); Non-African American GFR(CKD) >90 (>60 ml/min/1.73 sqM); Sodium 133 mmol/L (137-145); Total Bilirubin 0.7 mg/dL (0.2-1.3); Total Protein 6.2 g/dL (6.3-8.2)
[2022-05-24 08:10] LABS: Potassium 2.7 mmol/L (3.5-5.1)
[2022-05-24 08:18] LABS: Basophils % (A) 0 %; Eosinophils # (A) 0.1 k/uL (0-0.7); Eosinophils % (A) 2 %; HCT 34.5 % (34.0-46.0); HGB 12.2 gm/dL (11.4-16.0); Lymphocytes # (A) 0.9 k/uL (1.0-4.8); Lymphocytes % (A) 15 %; MCH 32.3 pg (25.0-35.0); MCHC 35.2 g/dL (31.0-37.0); MCV 91.7 fL (80.0-100.0); Mean Platelet Volume 7.8; Monocytes # (A) 0.5 k/uL (0-1.0); Monocytes % (A) 8 %; Neutrophils # (A) 4.4 k/uL (1.3-7.7); Neutrophils % (A) 73 %; Platelet Count 188 k/uL (150-450); RBC 3.76 m/uL (3.80-5.40); RDW 12.6 % (11.5-15.5); WBC 6.1 k/uL (3.8-10.6)
[2022-05-24] MEDS: PANTOPRAZOLE 40 MG/10 ML VIAL IV SCH (08:37)
[2022-05-24] MEDS: APIXABAN 5 MG TAB PO SCH (08:37)
[2022-05-24] MEDS: amLODIPine 2.5 MG TAB PO SCH (08:37)
[2022-05-24] MEDS: CHOLECALCIFEROL 25 MCG (1000 IU) TABLET PO SCH (08:37)
[2022-05-24] MEDS: METOPROLOL TARTRATE 25 MG TAB PO SCH (08:38)
[2022-05-24] MEDS: CALCIUM CARB-VIT D 500 MG-5 MCG TAB PO SCH (08:38)
[2022-05-24] MEDS: OSELTAMIVIR 75 MG CAP PO SCH (08:39)
[2022-05-24] MEDS: LIPASE 5,000/PROTEASE 17,000/AMYLASE 24,000 PO SCH (08:39)
[2022-05-24] MEDS: FLUTICASONE 50MCG/SPRAY NASAL 16GM EA NOSTRIL SCH (08:39)
[2022-05-24] MEDS: DULoxetine HCL 30 MG CAPSULE.DR PO SCH (08:40)
[2022-05-24 08:53] VITALS: BP 139/82; PULSE 52; RESP 16; TEMP 98.4
[2022-05-24] MEDS ORDERED: POTASSIUM CHLORIDE ER 10 MEQ TAB.ER.PRT PO STA (10:22)
[2022-05-24] MEDS: POTASSIUM CHLORIDE 10 MEQ in WATER FOR INJECTION 1 100ML.BAG IVPB SCH ×2 (10:43→12:24)
--- NOTE | 2022-05-24 12:25 | P.DS ---
Providers Date of admission: 05/21/22 23:02 Expected date of discharge: 05/24/22 Attending physician: Stephanie Muro MD [facility] Course: Sepsis secondary to influenza Complicated UTI Hyponatremia, hypochloremic Pulmonary fibrosis, Paroxysmal A. fib Hypertension Hyperlipidemia Hypothyroidism The patient is a 72-year-old female with a PMH of A. fib on Eliquis, pulmonary fibrosis, hypertension, hyperlipidemia, and hypothyroidism who presented to the emergency room with complaints of cough and fatigue. In the emergency room, the patient was noted to be hypoxic with SpO2 92% on room air with pulse 112 and BP 127/74. Chest x-ray revealed pulmonary fibrotic changes unchanged from prior. EKG revealed sinus tachycardia with APCs at 135 bpm. Laboratory evaluation was remarkable for influenza type a positive, UA consistent with UTI, and WBC count 12.1. Patient was monitored for 72 hours, urine culture ultimately grew pansensitive E. coli. Her pro-calcitonin was low and bacterial superinfection of influenza pneumonia was felt to be less likely. Patient was discharged home with 2 additional days of tamiflu and cefdinir. She will f/u with PCP. I spent 34 minutes coordinating this discharge, discharge date 05/24 Gen: awake, alert HEENT: normocephalic, atraumatic, good hearing acuity, moist mucous membranes Resp: good air exchange, breathing comfortably with no accessory muscle use, coarse breath sounds with diffuse crackles CVS: good distal perfusion x 4, GI: soft, NTTP, ND : no SPT, no CVAT, vickers catheter not present MSK: no pitting edema, no clubbing Neuro: non-focal, moving all extremities Psych: cooperative, euthymic mood Patient Condition at Discharge: Good Plan - Discharge Summary Discharge Rx Participant: No New Discharge Prescriptions: New Cefdinir 300 mg PO Q12HR #4 cap Oseltamivir [Tamiflu] 75 mg PO Q12HR #4 cap Acetaminophen Tab [Tylenol] 650 mg PO Q6HR PRN tab PRN Reason: Mild Pain Or Fever > 100.5 Continue Albuterol Sulfate [Proair Hfa] 1 puff INHALATION RT-QID PRN PRN Reason: Shortness Of Breath Or Wheezing Aspirin [Adult Low Dose Aspirin EC] 81 mg PO DAILY Calcium Carbonate/Vitamin D3 [Calcium 500-Vit D3 5 Mcg (200 Iu)] 1 tab PO DAILY Etanercept [Enbrel] 50 mg IM TU Fluticasone Nasal [place] [Flonase Nasal [place]] 1 spray EA NOSTRIL DAILY L.acidoph,Paracasei, B.lactis [Probiotic] 1 cap PO DAILY Montelukast [Singulair] 10 mg PO HS Levothyroxine Sodium [Synthroid] 100 mcg PO DAILY Alendronate Sodium [Fosamax] 70 mg PO TU amLODIPine [Norvasc] 2.5 mg PO DAILY Cholecalciferol [Vitamin D3 (25 Mcg = 1000 Iu)] 50 mcg PO DAILY Budesonide-Formot 160-4.5 Mcg [Symbicort 160-4.5 Mcg Inhaler] 2 puff INHALATION RT-BID Apixaban [Eliquis] 5 mg PO BID Atorvastatin [Lipitor] 40 mg PO HS Ubidecarenone [Co Q-10] 100 mg PO DAILY Psyllium Husk [Fiber Capsule] 0.4 gm PO BID Metoprolol Tartrate [Lopressor] 12.5 mg PO DAILY DULoxetine HCL [Cymbalta] 30 mg PO BID Discharge Medication List Albuterol Sulfate [Proair Hfa] 1 puff INHALATION RT-QID PRN 10/29/17 [History] Aspirin [Adult Low Dose Aspirin EC] 81 mg PO DAILY 10/29/17 [History] Calcium Carbonate/Vitamin D3 [Calcium 500-Vit D3 5 Mcg (200 Iu)] 1 tab PO DAILY 10/29/17 [History] Etanercept [Enbrel] 50 mg IM TU 10/29/17 [History] Fluticasone Nasal [place] [Flonase Nasal [place]] 1 spray EA NOSTRIL DAILY 10/29/17 [History] L.acidoph,Paracasei, B.lactis [Probiotic] 1 cap PO DAILY 10/29/17 [History] Montelukast [Singulair] 10 mg PO HS 10/29/17 [History] Levothyroxine Sodium [Synthroid] 100 mcg PO DAILY 08/22/18 [History] Alendronate Sodium [Fosamax] 70 mg PO TU 12/27/20 [History] Apixaban [Eliquis] 5 mg PO BID 12/27/20 [History] Atorvastatin [Lipitor] 40 mg PO HS 12/27/20 [History] Budesonide-Formot 160-4.5 Mcg [Symbicort 160-4.5 Mcg Inhaler] 2 puff INHALATION RT-BID 12/27/20 [History] Cholecalciferol [Vitamin D3 (25 Mcg = 1000 Iu)] 50 mcg PO DAILY 12/27/20 [History] Ubidecarenone [Co Q-10] 100 mg PO DAILY 12/27/20 [History] DULoxetine HCL [Cymbalta] 30 mg PO BID 05/21/22 [History] Metoprolol Tartrate [Lopressor] 12.5 mg PO DAILY 05/21/22 [History] Psyllium Husk [Fiber Capsule] 0.4 gm PO BID 05/21/22 [History] amLODIPine [Norvasc] 2.5 mg PO DAILY 05/21/22 [History] Acetaminophen Tab [Tylenol] 650 mg PO Q6HR PRN tab 05/24/22 [Rx] Cefdinir 300 mg PO Q12HR #4 cap 05/24/22 [Rx] Oseltamivir [Tamiflu] 75 mg PO Q12HR #4 cap 05/24/22 [Rx] Follow up Appointment(s)/Referral(s): Christopher Tran DO [Primary Care Provider] - 1-2 days (Please call Wednesday to schedule appointment, will need a repeat potassium level 05/25/22) Patient Instructions/Handouts: Urinary Tract Infection in Women (DC), Influenza (DC) Discharge Disposition: HOME SELF-CARE
[2022-05-26] MEDS ORDERED: NON FORMULARY DRUG (Alendronate Sodium [Fosamax] 70 MG Tablet) PO SCH (23:04)
== END 2022-05-24 14:11 | disposition home or self-care (01) | DRG 872 ==
LOC: EC 14:11 → 4SSUR 23:02
PROVIDERS: ADMIT Internal Medicine; ATTEND Internal Medicine
DX: A41.89 Other specified sepsis (principal); N39.0 Urinary tract infection, site not specified; E87.1 Hypo-osmolality and hyponatremia; A79.82 Anaplasmosis [A. phagocytophilum]; J10.1 Influenza due to other identified influenza virus with other respiratory manifestations; J84.10 Pulmonary fibrosis, unspecified; M06.9 Rheumatoid arthritis, unspecified; Z20.822 Contact with and (suspected) exposure to COVID-19; I48.0 Paroxysmal atrial fibrillation; B96.20 Unspecified Escherichia coli [E. coli] as the cause of diseases classified elsewhere; E86.0 Dehydration; R09.02 Hypoxemia; R35.0 Frequency of micturition; R39.15 Urgency of urination; E87.8 Other disorders of electrolyte and fluid balance, not elsewhere classified; I10 Essential (primary) hypertension; E78.5 Hyperlipidemia, unspecified; E03.9 Hypothyroidism, unspecified; Z88.1 Allergy status to other antibiotic agents; Z88.2 Allergy status to sulfonamides; Z88.8 Allergy status to other drugs, medicaments and biological substances; Z79.899 Other long term (current) drug therapy; Z79.890 Hormone replacement therapy; Z79.811 Long term (current) use of aromatase inhibitors; Z79.83 Long term (current) use of bisphosphonates; Z79.01 Long term (current) use of anticoagulants; Z79.51 Long term (current) use of inhaled steroids; Z79.891 Long term (current) use of opiate analgesic; Z79.02 Long term (current) use of antithrombotics/antiplatelets; Z79.82 Long term (current) use of aspirin; Z87.19 Personal history of other diseases of the digestive system; Z98.42 Cataract extraction status, left eye; Z98.41 Cataract extraction status, right eye
CPT/HCPCS: 36415; 71046; 80048; 80053; 81001; 83605; 84145; 84484; 85025; 85027; 85610; 85730; 87040; 87077; 87086; 87186; 87502; 87635; 93005; 94640; 96361; 96374; 96375; 99285

== ENCOUNTER → 2022-11-11 | Outpatient (CLI) | payer MEDICARE ==
--- NOTE | 2022-11-11 18:59 | BD ---
EXAMINATION TYPE: Axial Bone Density DATE OF EXAM: 11/11/2022 CLINICAL HISTORY: 72 years old Female. ICD-10 CODE: M05.80RHEUMAT, M85.9DISORDER OF BONE DENSITY Height: 4 ft 11 1/2 in Weight: 130 FRAX RISK QUESTIONS: Alcohol (3 or more units per day): no Family History (Parent hip fracture): no Glucocorticoids (More than 3mos): no (Ex: prednisone, prednisolone, methylprednisolone, dexamethasone, and hydrocortisone). History of Fracture in Adulthood: no Secondary Osteoporosis: 1. Type 1 Diabetes: no 2. Hyperthyroidism: no 3. Menopause before 45: no 4. Malnutrition: no 5. Chronic liver disease: no Rheumatoid Arthritis: yes Current Tobacco Use: no RISK FACTORS HISTORY OF: Surgery to Spine/Hip(right/left)/Wrist (right/left): no Family History of Osteoporosis: no Active: yes Diet low in dairy products/other sources of calcium: nono Postmenopausal woman: yes Take estrogen and/or progesterone medications: no Lost more than 2 inches in height since high school: no Frequent falls: no Poor Health: good Hyperparathyroidism: no Adrenal Insufficiency: no MEDICATIONS: Thyroid Medications: yes Which medication: levothyroxine How Long: many years Additional Medications: levothyroxine, amoxicillin, avsola, amlodipine, Atorvastatin, fosamax, enbrel , eliquis, flonase, metoprolol, Additional History: EXAM MEASUREMENTS: Bone mineral densitometry was performed using the [employer] System. Bone mineral density as measured about the Lumbar spine is: ----- L1-L4(G/cm2): 1.109 T Score Values are as follows: ----- L1: -1.8 ----- L2: -1.2 ----- L3: -1.0 ----- L4: 0.6 ----- L1-L4: -0.6 Z Score Values are as follows: ----- L1: 0.1 ----- L2: 0.8 ----- L3: 1.0 ----- L4: 2.5 ----- L1-L4: 1.4 Bone mineral density has: increased 7.0 % since study of: 2019 Bone mineral density about the R hip (g/cm2): 0.761 Bone mineral density about the L hip (g/cm2): 0.776 T Score values are as follows: -----R Neck: -2.0 -----L Neck: -1.9 -----R Total: -1.3 -----L Total: -1.4 Z Score values are as follows: -----R Neck: 0.0 -----L Neck: 0.1 -----R Total: 0.6 -----L Total: 0.4 Bone mineral density has: decreased -2.3 % since study of: 2019 FRAX%s: The graph provided illustrates a 44.1 % chance for a major osteoporotic fx and a 28.9 % chanc e for the hips probability for fx in 10 years time. IMPRESSION: Osteopenia (T Score between -2.5 and -1). There is slightly increased risk of fracture and the patient may be considered for treatment. Re-Screen 2-5 years. NOTE: T-SCORE=SD OF THE YOUNG ADULT MEAN.
--- NOTE | 2022-11-12 07:47 | MM ---
Reason for Exam: Screening (asymptomatic). Last screening mammogram was performed 12 month(s) ago. Patient History: Menarche at age 9. First Full-Term at age 22. Postmenopausal. Sister had breast cancer, age 50. Mother had breast cancer, age 70. Risk Values: Yarelis 5 year model risk: 7.8%. NCI Lifetime model risk: 17.1%. Prior Study Comparison: 08/09/2019 Bilateral Screening Mammogram, [facility]. 10/09/2020 Bilateral Screening Mammogram, [facility]. 10/23/2021 Bilateral Screening Mammogram, [facility]. Tissue Density: There are scattered fibroglandular densities. Findings: Analyzed By CAD. There is no suspicious group of microcalcifications or new suspicious mass in either breast. Overall Assessment: Negative, BI-RAD 1 Management: Screening Mammogram of both breasts in [address] [facility] will attempt to contact patient to return for supplemental views and ultrasound if indicated. Patient should continue monthly self-breast exams. A clinical breast exam by your physician is recommended on an annual basis. This exam should not preclude additional follow-up of suspicious palpable abnormalities. Note on Yarelis scores and lifetime risk: 1. A Yarelis score greater than 3% is considered moderate risk. If this is the case, consider specialist referral to assess eligibility for a risk reducing agent. 2. If overall lifetime risk for the development of breast cancer is 20% or higher, the patient may qualify for future screening with alternating mammogram and breast MRI. Electronically signed and approved by: Francisco Massey DO
== END | disposition home or self-care (01) ==
LOC: RADBDWWP 13:12
PROVIDERS: ATTEND Family Medicine
DX: Z12.31 Encounter for screening mammogram for malignant neoplasm of breast (principal); M85.89 Other specified disorders of bone density and structure, multiple sites; M05.80 Other rheumatoid arthritis with rheumatoid factor of unspecified site; Z78.0 Asymptomatic menopausal state; Z80.3 Family history of malignant neoplasm of breast
CPT/HCPCS: 77063; 77067; 77080

== ENCOUNTER → 2023-03-01 | Outpatient (CLI) | payer MEDICARE ==
--- NOTE | 2023-03-01 15:37 | CT ---
EXAMINATION TYPE: CT chest wo con DATE OF EXAM: 03/01/2023 COMPARISON: 10/02/2015 HISTORY: Rheumatoid lung disease. CT DLP: 620.[address] of the chest was performed with lung and mediastinal window settings submitted. The la ck of contrast limits evaluation of the vascular, mediastinal and parenchymal structures including th e upper abdomen. LUNGS: Again noted are scattered areas of reticulation and interstitial fibrotic change seen bilatera lly. There is involvement of the upper and lower lobes with greater peripheral component. Peripheral subpleural fibrosis with honeycombing and cystic changes noted. Overall the appearance appears to hav e progressed since prior examination. There is evidence of lower and upper lobe bronchiectasis. No fo sidney consolidation or mass. Scattered areas of pleural thickening. MEDIASTINUM/GREGORY: Thoracic aorta is of normal caliber with limited evaluation given lack of contrast . The heart is enlarged. Coronary artery calcifications. No evidence for mediastinal mass. No lymp h nodes greater than 1cm. UPPER ABDOMEN: No significant abnormality is seen. OTHER: No significant other abnormality. IMPRESSION: 1. Progressive changes of pulmonary fibrosis.
== END | disposition home or self-care (01) ==
LOC: RADCTMAIN 11:52
PROVIDERS: ATTEND Internal Medicine Critical Care Medicine
DX: M05.10 Rheumatoid lung disease with rheumatoid arthritis of unspecified site (principal); J84.10 Pulmonary fibrosis, unspecified
CPT/HCPCS: 71250

== ENCOUNTER 2023-04-28 17:58 | Inpatient (IN) | payer MEDICARE ==
[2023-04-28] MEDS ORDERED: ONDANSETRON ODT 4 MG TAB PO STA (18:23)
[2023-04-28] MEDS ORDERED: MORPHINE SULFATE 2 MG/ML SYRINGE IM STA (18:23)
--- NOTE | 2023-04-28 18:32 | ED ---
Fall HPI - General Chief Complaint: Fall Stated Complaint: fall-poss hip fracture Time Seen by Provider: 04/28/23 18:05 Source: patient Mode of arrival: ambulatory - History of Present Illness Initial Comments: 72-year-old female presenting with chief complaint of left groin pain. Patient had a fall from standing this morning. She was seen at her PCPs office they state that x-ray was negative for hip fracture she was sent in to rule out a pelvic fracture. No discoloration. Patient admits to pain with weightbearing. No head injury or loss of consciousness. Patient is on Eliquis. No abdominal pain, chest pain, difficulty breathing. - Related Data Home Medications Medication Instructions Recorded Confirmed Albuterol Sulfate [Proair Hfa] 1 puff INHALATION RT-QID PRN 10/29/17 04/28/23 Aspirin [Adult Low Dose Aspirin EC] 81 mg PO DAILY 10/29/17 04/28/23 Fluticasone Nasal [place] [Flonase 1 spr EA NOSTRIL DAILY 10/29/17 04/28/23 Nasal [place]] L.acidoph,Paracasei, B.lactis 2 cap PO DAILY 10/29/17 04/28/23 [Probiotic] Montelukast [Singulair] 10 mg PO HS 10/29/17 04/28/23 Levothyroxine Sodium [Synthroid] 100 mcg PO DAILY 08/22/18 04/28/23 Alendronate Sodium [Fosamax] 70 mg PO TU 12/27/20 04/28/23 Apixaban [Eliquis] 5 mg PO BID 12/27/20 04/28/23 Budesonide-Formot 160-4.5 Mcg 2 puff INHALATION RT-BID 12/27/20 04/28/23 [Symbicort 160-4.5 Mcg Inhaler] Cholecalciferol [Vitamin D3 (25 50 mcg PO DAILY 12/27/20 04/28/23 Mcg = 1000 Iu)] Metoprolol Tartrate [Lopressor] 12.5 mg PO DAILY 05/21/22 04/28/23 amLODIPine [Norvasc] 2.5 mg PO DAILY 05/21/22 04/28/23 Calcium/Vitamin D 1200mg/25mcg 1 tab PO DAILY 04/28/23 04/28/23 Estradiol Cream [Estrace Cream 1 gm VAGINAL MOWEFR 04/28/23 04/28/23 0.01%] Orencia(Unknown Dose) 1 dose IV DIRECTED 04/28/23 04/28/23 Ubidecarenone [Coenzyme Q10] 120 mg PO DAILY 04/28/23 04/28/23 calcium polycarbophiL [Fibercon] 625 mg PO BID 04/28/23 04/28/23 predniSONE 2.5 mg PO DAILY 04/28/23 04/28/23 Allergies Allergy/AdvReac Type Severity Reaction Status Date / Time ciprofloxacin [From Cipro] Allergy GETS A Verified 04/28/23 18:02 COLD SORE loratadine [From Claritin] Allergy Rash/Hives Verified 04/28/23 18:02 nitrofurantoin Allergy POSSIBLY Verified 04/28/23 18:02 [From Macrobid] CAUSE THE PULMONARY FIBROSIS Sulfa (Sulfonamide Allergy Rash/Hives Verified 04/28/23 18:02 Antibiotics) Review of Systems ROS Statement: Those systems with pertinent positive or pertinent negative responses have been documented in the HPI. ROS Other: All systems not noted in ROS Statement are negative. Past Medical History Past Medical History: Rheumatoid Arthritis (RA) Additional Past Medical History / Comment(s): PULMONARY FIBROSIS. URINARY FREQUE NCY. History of Any Multi-Drug Resistant Organisms: None Reported Past Surgical History: Hernia Repair, Orthopedic Surgery Additional Past Surgical History / Comment(s): BILATERAL CATARACT. LUNG BIOPSY. RIGHT ROTATOR CUFF. CARPAL TUNNEL. Past Anesthesia/Blood Transfusion Reactions: Motion Sickness Additional Past Anesthesia/Blood Transfusion Reaction / Comment(s): DIFFICULT TO WAKE UP Past Psychological History: No Psychological Hx Reported Smoking Status: Never smoker Past Alcohol Use History: None Reported Past Drug Use History: None Reported - Past Family History Mother Family Medical History: Cancer Sister(s) Family Medical History: Cancer General Exam Limitations: no limitations General appearance: alert, in no apparent distress Head exam: Present: atraumatic, normocephalic, normal inspection Eye exam: Present: normal appearance, EOMI Neck exam: Present: normal inspection, full ROM Respiratory exam: Present: normal lung sounds bilaterally. Absent: respiratory distress, wheezes, rales, rhonchi, stridor Cardiovascular Exam: Present: regular rate, normal rhythm, normal heart sounds. Absent: systolic murmur, diastolic murmur, rubs, gallop, clicks Left Hip exam: Present: normal inspection, tenderness. Absent: full ROM Upper Leg exam: Present: normal inspection, tenderness. Absent: full ROM Neurovascular tendon exam: Present: no vascular compromise Neurological exam: Present: alert, oriented X3 Psychiatric exam: Present: normal affect, normal mood Skin exam: Present: warm, dry, intact, normal color. Absent: rash Course Vital Signs 04/28/23 04/28/23 04/28/23 17:59 21:51 22:00 Temperature 98 F Pulse Rate 78 94 Respiratory 18 18 Rate Blood Pressure 176/105 139/82 139/82 O2 Sat by Pulse 98 93 L 93 L Oximetry Medical Decision Making - Medical Decision Making Was pt. sent in by a medical professional or institution (, PA, [employer], urgent care, hospital, or senior care...) When possible be specific @ -Sent by PCP Did you speak to anyone other than the patient for history (EMS, parent, family, police, friend...)? What history was obtained from this source @ -No Did you review nursing and triage notes (agree or disagree)? Why? @ -I reviewed and agree with nursing and triage notes Were old charts reviewed (outside hosp., previous admission, EMS record, old EKG, old radiological studies, urgent care reports/EKG's, senior care records)? Report findings @ -Outside x-rays reviewed Differential Diagnosis (chest pain, altered mental status, abdominal pain women, abdominal pain men, vaginal bleeding, weakness, fever, dyspnea, syncope, headache, dizziness, GI bleed, back pain, seizure, CVA, palpatations, mental health, musculoskeletal)? @ -Differential Musculoskeletal Muscular strain, contusion, ligament sprain, fracture, arthritis, septic arthritis, bursitis, cellulitis, muscle spasm, nerve compression, DVT, arterial occlusion, herpes zoster, electrolyte abnormality, tumor.... This is not meant to be in all inclusive list EKG interpreted by me (3pts min.). @ -As above X-rays interpreted by me (1pt min.). @ -None done CT interpreted by me (1pt min.). @ -CT of the left hip shows acute fracture of the left inferior and superior pubic ramus U/S interpreted by me (1pt. min.). @ -None done What testing was considered but not performed or refused? (CT, X-rays, U/S, labs)? Why? @ -None What meds were considered but not given or refused? Why? @ -None Did you discuss the management of the patient with other professionals (professionals i.e. , PA, [employer], lab, RT, psych nurse, drug abuse social worker, group exercise instructor, teacher, chief contract officer, director case)? Give summary @ -I spoke with [facility] who [facility] Was smoking cessation discussed for >3mins.? @ -No Was critical care preformed (if so, how long)? @ -No Were there social determinants of health that impacted care today? How? (Homelessness, low income, unemployed, alcoholism, drug addiction, transportation, low edu. Level, literacy, decrease access to med. care, shelter, rehab)? @ -No Was there de-escalation of care discussed even if they declined (Discuss DNR or withdrawal of care, Hospice)? DNR status @ -No What co-morbidities impacted this encounter? (DM, HTN, Smoking, COPD, CAD, Cancer, CVA, ARF, Chemo, Hep., AIDS, mental health diagnosis, sleep apnea, morbid obesity)? @ -None Was patient admitted / discharged? Hospital course, mention meds given and route, prescriptions, significant lab abnormalities, going to OR and other pertinent info. @ -72-year-old female with a fall from standing today presenting with chief complaint of left hip pain. Patient required significant assistance in transferring just from the wheelchair to the bed and is unable to ambulate on her own. History and physical exam were conducted. Patient is neurovascularly intact. CT of the hip shows fracture of the left inferior and superior pubic ramus. I had difficulty viewing the radiology report, I was able to review the report on the pharmacist technician's computer. Patient will require admission as she is unable to ambulate. She is agreeable with this plan. Patient is admitted with medical consult in place. I discussed this case with my attending Dr. Mchugh. Undiagnosed new problem with uncertain prognosis? @ -No Drug Therapy requiring intensive monitoring for toxicity (Heparin, Nitro, Insulin, Cardizem)? @ -No Were any procedures done? @ -No Diagnosis/symptom? @ -Pubic ramus fracture Acute, or Chronic, or Acute on Chronic? @ -Acute Uncomplicated (without systemic symptoms) or Complicated (systemic symptoms)? @ -Complicated Side effects of treatment? @ -No Exacerbation, Progression, or Severe Exacerbation? @ -No Poses a threat to life or bodily function? How? (Chest pain, USA, NH, pneumonia, PE, COPD, DKA, ARF, appy, cholecystitis, CVA, Diverticulitis, Homicidal, Suicidal, threat to staff... and all critical care pts) @ -No - Lab Data Result diagrams: 04/28/23 21:43 Disposition Clinical Impression: Pubic ramus fracture Disposition: ADMITTED IP TO THIS HOSP Condition: Fair Time of Disposition: 21:29
[2023-04-28] MEDS ORDERED: NALOXONE 0.4 MG/ML 1 ML VIAL IV PRN (21:26)
[2023-04-28] MEDS ORDERED: HYDROcodone/APAP 7.5-325MG 1 EACH TAB PO PRN (21:35)
[2023-04-28] MEDS: HYDROmorphone 1 MG/ML 1 ML SYRINGE IVP PRN (22:03)
[2023-04-28] MEDS: ONDANSETRON 4 MG/2 ML VIAL IVP PRN (22:04)
[2023-04-28 22:39] LABS: Basophils % (A) 0 %; Eosinophils # (A) 0.1 k/uL (0-0.7); Eosinophils % (A) 0 %; HCT 38.6 % (34.0-46.0); HGB 12.9 gm/dL (11.4-16.0); Lymphocytes # (A) 1.2 k/uL (1.0-4.8); Lymphocytes % (A) 11 %; MCH 30.9 pg (25.0-35.0); MCHC 33.6 g/dL (31.0-37.0); MCV 92.2 fL (80.0-100.0); Mean Platelet Volume 8.1; Monocytes # (A) 0.8 k/uL (0-1.0); Monocytes % (A) 7 %; Neutrophils # (A) 8.5 k/uL (1.3-7.7); Neutrophils % (A) 79 %; Platelet Count 190 k/uL (150-450); RBC 4.18 m/uL (3.80-5.40); RDW 13.1 % (11.5-15.5); WBC 10.8 k/uL (3.8-10.6)
[2023-04-28 23:18] LABS: ALT 17 U/L (4-34); AST 27 U/L (14-36); African American GFR (CKD) >90 (>60 ml/min/1.73 sqM); Albumin 3.1 g/dL (3.5-5.0); Albumin/Globulin Ratio 0.9; Alkaline Phosphatase 55 U/L (38-126); Anion Gap 8 mmol/L; Blood Urea Nitrogen 19 mg/dL (7-17); Calcium 8.6 mg/dL (8.4-10.2); Carbon Dioxide 22 mmol/L (22-30); Chloride 104 mmol/L (98-107); Globulin 3.6 g/dL; Glucose 105 mg/dL (74-99); Non-African American GFR(CKD) >90 (>60 ml/min/1.73 sqM); Potassium 3.9 mmol/L (3.5-5.1); Sodium 134 mmol/L (137-145); Total Bilirubin 0.6 mg/dL (0.2-1.3); Total Protein 6.7 g/dL (6.3-8.2)
[2023-04-29] MEDS: HYDROmorphone 1 MG/ML 1 ML SYRINGE IVP PRN ×2 (01:56→08:24)
[2023-04-29] MEDS ORDERED: ALBUTEROL NEBULIZED 2.5 MG/3 ML INHALATION PRN (08:17)
--- NOTE | 2023-04-29 08:19 | CT ---
EXAMINATION TYPE: CT hip LT wo con, XR pelvis AP view, XR Hip Complete LT CT DLP: 375.8 mGycm, Automated exposure control for dose reduction was used. DATE OF EXAM: 04/28/2023 6:53 PM COMPARISON: Extremity radiograph same day. CLINICAL INDICATION:Female, 72 years old with history of fall; PHH, left hip pain from fall TECHNIQUE: Axial images were obtained of the CT hip LT wo con, XR pelvis AP view, XR Hip Complete LT, Additional coronal and sagittal reformatted images and soft tissue and bone window were obtained for review. 3-D reconstruction was created on a separate workstation. Frontal view of the pelvis. Plain film Frontal and frog-leg lateral view of the left hip. Plain film Contrast used: mL of , (None if empty) Oral contrast used: (None if empty) FINDINGS: There is acute fracture of the left superior and inferior pubic ramus. The superior pubic ramus fracture is comminuted. The left femur appears intact. The visualized portions of the sacrum appear intact. Pessary ring is seen within the vagina. No additional findings on plain film radiographs. The right pelvis is intact. IMPRESSION: Acute fractures of left inferior and superior pubic ramus MTDD
--- NOTE | 2023-04-29 08:19 | P.CONS ---
History of Present Illness - Reason for Consult Consult date: 04/29/23 pulmonary fibrosis Requesting physician: Rock Patel - Chief Complaint left groin pain - History of Present Illness Patient is a 72-year-old female with pulmonary fibrosis, A. fib anticoagulated with Eliquis, hypertension, and multiple other comorbid conditions who presented to the ER with left groin pain after a fall from standing. She initially went to her primary care physician's office where they obtained x-rays which were negative for hip fracture but they were unable to rule out pelvic fracture and she was therefore sent to the emergency department. Patient underwent a hip CT in the emergency department which demonstrated a left and superior inferior pubic rami fracture. Patient seen and examined at bedside. She reports that she went to get up from the bathroom on 04/27 and felt like her left knee gave out and she fell. She denies any syncope, but might have been slightly light headed. She has not had any recent illness like cough, cold, fever, or flu. She denies any chest pain or shortness of breath. She does not use any assistive devices at baseline. She is having some nausea and vomiting after her most recent dose of Dilaudid. She has no other complaints at this time. She does report that she was recently switched Orencia for her rheumatoid arthritis and has had 4 doses. She feels as though it maybe doing okay for her lung but that her joint pain is worse. She follows with Dr. Gutierrez. She see Dr. Monsivais for her Pulm fibrosis which is said to be due to her RA. Vital signs reviewed General: nontoxic, no distress, appears at stated age Derm: warm, dry Eyes: EOMI, no lid lag, anicteric sclera, pupils equal round reactive to light ENT: Nose and ears atraumatic, no thrush, no pharyngeal erythema Cardiovascular: S1S2 reg, no murmur, positive posterior tibial pulse bilateral, no edema, capillary refill less than 2 seconds Lungs: clear to auscultation bilateral, no rhonchi, no rales, no wheeze, no accessory muscle use Abdominal: soft, nontender to palpation, no guarding, no appreciable organomegaly, normal bowel sounds Ext: no gross muscle atrophy, no contractures Neuro: CN II-XII grossly intact, no focal neuro deficits. Psych: Alert, oriented, appropriate affect Assessment/Plan: Left superior and inferior pubic rami fracture Mechanical fall -Continue with [employer] 7. 5/325 milligrams every 6 hours as needed for moderate pain, Dilaudid 1 mg IV every 4 hours as needed for severe pain - fall precuations - PT/OT - await ortho recs Pulmonary fibrosis Rheumatoid arthritis -Resume patient's home albuterol 1 puff 4 times daily as needed for shortness of breath, Symbicort 160/4.52 puffs twice daily -Prednisone 2.5 mg daily, Singulair 10 mg at night - needs to follow up with Dr. Gutierrez after discharge, may benefit from bone density testing if not complete already. Paroxysmal atrial fibrillation -Await orthopedic evaluation to determine if all questions be restarted, doubt surgical intervention will be needed in this case. -Metoprolol 12.5 mg daily Chronic: Hypertension Dyslipidemia Hypothyroidism Imaging: CT have images reviewed by myself as there is no final radiology report available. Left inferior pubic rami fracture noted, possible subtle superior pubic rami fracture Data Review: 04/28/23 are CBC and basic metabolic profile which are remarkable for white blood cell count of 10.8, sodium 134, BUN 19, creatinine 0.46, glucose 105 Thank you for allowing us to participate in the care of this pleasant patient. Do not hesitate to contact us with questions. Someone can be reached from the [facility] hospitalist group all hours of the day at [phone] or via [employer]. This dictation was prepared using [employer] voice recognition software. Th ough every attempt is made to correct errors during dictation some may still exist. Past Medical History Past Medical History: Atrial Fibrillation, Hyperlipidemia, Hypertension, Rheumatoid Arthritis (RA), Thyroid Disorder Additional Past Medical History / Comment(s): PULMONARY FIBROSIS. URINARY FREQUENCY. History of Any Multi-Drug Resistant Organisms: None Reported Past Surgical History: Hernia Repair, Orthopedic Surgery Additional Past Surgical History / Comment(s): BILATERAL CATARACT. LUNG BIOPSY. RIGHT ROTATOR CUFF. CARPAL TUNNEL. Past Anesthesia/Blood Transfusion Reactions: Motion Sickness Additional Past Anesthesia/Blood Transfusion Reaction / Comm: DIFFICULT TO WAKE UP Past Psychological History: No Psychological Hx Reported Smoking Status: Never smoker Past Alcohol Use History: None Reported Past Drug Use History: None Reported - Past Family History Mother Family Medical History: Cancer Sister(s) Family Medical History: Cancer Medications and Allergies Home Medications Medication Instructions Recorded Confirmed Type Albuterol Sulfate [Proair Hfa] 1 puff INHALATION RT-QID PRN 10/29/17 04/28/23 History Aspirin [Adult Low Dose Aspirin EC] 81 mg PO DAILY 10/29/17 04/28/23 History Fluticasone Nasal [place] [Flonase 1 spr EA NOSTRIL DAILY 10/29/17 04/28/23 History Nasal [place]] L.acidoph,Paracasei, B.lactis 2 cap PO DAILY 10/29/17 04/28/23 History [Probiotic] Montelukast [Singulair] 10 mg PO HS 10/29/17 04/28/23 History Levothyroxine Sodium [Synthroid] 100 mcg PO DAILY 08/22/18 04/28/23 History Alendronate Sodium [Fosamax] 70 mg PO TU 12/27/20 04/28/23 History Apixaban [Eliquis] 5 mg PO BID 12/27/20 04/28/23 History Budesonide-Formot 160-4.5 Mcg 2 puff INHALATION RT-BID 12/27/20 04/28/23 History [Symbicort 160-4.5 Mcg Inhaler] Cholecalciferol [Vitamin D3 (25 50 mcg PO DAILY 12/27/20 04/28/23 History Mcg = 1000 Iu)] Metoprolol Tartrate [Lopressor] 12.5 mg PO DAILY 05/21/22 04/28/23 History amLODIPine [Norvasc] 2.5 mg PO DAILY 05/21/22 04/28/23 History Calcium/Vitamin D 1200mg/25mcg 1 tab PO DAILY 04/28/23 04/28/23 History Estradiol Cream [Estrace Cream 1 gm VAGINAL MOWEFR 04/28/23 04/28/23 History 0.01%] Ubidecarenone [Coenzyme Q10] 120 mg PO DAILY 04/28/23 04/28/23 History calcium polycarbophiL [Fibercon] 625 mg PO BID 04/28/23 04/28/23 History predniSONE 2.5 mg PO DAILY 04/28/23 04/28/23 History Orencia Infusion 750 mg IV Q28D 04/29/23 04/29/23 History Allergies Allergy/AdvReac Type Severity Reaction Status Date / Time ciprofloxacin [From Cipro] Allergy GETS A Verified 04/28/23 18:02 COLD SORE loratadine [From Claritin] Allergy Rash/Hives Verified 04/28/23 18:02 nitrofurantoin Allergy POSSIBLY Verified 04/28/23 18:02 [From Macrobid] CAUSE THE PULMONARY FIBROSIS Sulfa (Sulfonamide Allergy Rash/Hives Verified 04/28/23 18:02 Antibiotics) Physical Exam Osteopathic Statement: *. No significant issues noted on an osteopathic structural exam other than those noted in the History and Physical/Consult. Vitals: Vital Signs Temp Pulse Pulse Resp BP BP Pulse Ox 04/29/23 02:00 98.0 F 107 H 16 126/76 94 L 04/28/23 22:00 94 18 139/82 93 L 04/28/23 21:51 139/82 93 L 04/28/23 17:59 98 F 78 18 176/105 98 Intake and Output 04/28/23 04/29/23 04/29/23 22:59 06:59 14:59 Output Total 300 Balance -300 Output: Urine 300 Other: Weight 61.235 kg 61.235 kg Results CBC & Chem 7: 04/28/23 21:43 04/28/23 22:55 Labs: Abnormal Lab Results - Last 24 Hours (Table) 04/28/23 04/28/23 Range/Units 21:43 22:55 WBC 10.8 H (3.8-10.6) k/uL Neutrophils # 8.5 H (1.3-7.7) k/uL Sodium 134 L (137-145) mmol/L BUN 19 H (7-17) mg/dL Creatinine 0.46 L (0.52-1.04) mg/dL Glucose 105 H (74-99) mg/dL Albumin 3.1 L (3.5-5.0) g/dL
[2023-04-29] MEDS: predniSONE 2.5 MG TAB PO SCH (08:59)
[2023-04-29] MEDS: amLODIPine 2.5 MG TAB PO SCH (09:01)
[2023-04-29] MEDS: METOPROLOL TARTRATE 25 MG TAB PO SCH (09:01)
[2023-04-29] MEDS: LEVOTHYROXINE 100 MCG TAB PO SCH (09:01)
[2023-04-29] MEDS: ONDANSETRON 4 MG/2 ML VIAL IVP PRN (09:10)
[2023-04-29] MEDS ORDERED: ACETAMINOPHEN TAB 325 MG TAB PO PRN (09:43)
--- NOTE | 2023-04-29 17:09 | P.HPOR ---
History of Present Illness H&P Date: 04/29/23 Chief Complaint: Left-sided inferior and superior pubic rami fracture Patient is a 68-year-old female who was brought to [facility] on 04/28/2023 after being evaluated by her internal medicine doctor with regards to a fall and injury to her left hip region. Patient states that she went to get out of bed yesterday morning when she lost her balance and the leg gave out falling onto her left side. Patient had time weightbearing after the injury, she was evaluated by her primary care doctor who recommended she report to [facility] emergency room for further evaluation. Imaging and lab tests were done upon arrival, it was determined the patient had a left-sided superior and inferior pubic rami fracture. Patient was unable to weight-bear as significant pain, I was contacted by the emergency room staff. Patient was admitted under our orthopedic care with internal medicine on consult Patient was evaluated today at bedside, she is resting in her hospital chair. Patient and family members at bedside. Patient most discomfort when she attempts to move the leg in place weight through the left lower extremity. Patient does admit to some right sided lateral chest and flank fall. She has no other orthopedic complaints at this time. She denies any numbness or tingling to the bilateral upper or lower extremities. She denies loss of bowl or bladder function at this time. Patient denies any surgery to the left or right hip a long with left or right knee. Pertinent past medical history to include pulmonary fibrosis along with A. fib, she does take oral anticoagulant. Patient also has a history of rheumatoid arthritis which she does take prednisone for. Review of Systems Constitutional: Reports as per HPI Past Medical History Past Medical History: Atrial Fibrillation, Hyperlipidemia, Hypertension, Rheumatoid Arthritis (RA), Thyroid Disorder Additional Past Medical History / Comment(s): PULMONARY FIBROSIS. URINARY FREQUENCY. History of Any Multi-Drug Resistant Organisms: None Reported Past Surgical History: Hernia Repair, Orthopedic Surgery Additional Past Surgical History / Comment(s): BILATERAL CATARACT. LUNG BIOPSY. RIGHT ROTATOR CUFF. CARPAL TUNNEL. Past Anesthesia/Blood Transfusion Reactions: Motion Sickness Additional Past Anesthesia/Blood Transfusion Reaction / Comment(s): DIFFICULT TO WAKE UP Past Psychological History: No Psychological Hx Reported Smoking Status: Never smoker Past Alcohol Use History: None Reported Past Drug Use History: None Reported - Past Family History Mother Family Medical History: Cancer Sister(s) Family Medical History: Cancer Medications and Allergies Home Medications Medication Instructions Recorded Confirmed Type Albuterol Sulfate [Proair Hfa] 1 puff INHALATION RT-QID PRN 10/29/17 04/28/23 H istory Aspirin [Adult Low Dose Aspirin EC] 81 mg PO DAILY 10/29/17 04/28/23 History Fluticasone Nasal [place] [Flonase 1 spr EA NOSTRIL DAILY 10/29/17 04/28/23 History Nasal [place]] L.acidoph,Paracasei, B.lactis 2 cap PO DAILY 10/29/17 04/28/23 History [Probiotic] Montelukast [Singulair] 10 mg PO HS 10/29/17 04/28/23 History Levothyroxine Sodium [Synthroid] 100 mcg PO DAILY 08/22/18 04/28/23 History Alendronate Sodium [Fosamax] 70 mg PO TU 12/27/20 04/28/23 History Apixaban [Eliquis] 5 mg PO BID 12/27/20 04/28/23 History Budesonide-Formot 160-4.5 Mcg 2 puff INHALATION RT-BID 12/27/20 04/28/23 History [Symbicort 160-4.5 Mcg Inhaler] Cholecalciferol [Vitamin D3 (25 50 mcg PO DAILY 12/27/20 04/28/23 History Mcg = 1000 Iu)] Metoprolol Tartrate [Lopressor] 12.5 mg PO DAILY 05/21/22 04/28/23 History amLODIPine [Norvasc] 2.5 mg PO DAILY 05/21/22 04/28/23 History Calcium/Vitamin D 1200mg/25mcg 1 tab PO DAILY 04/28/23 04/28/23 History Estradiol Cream [Estrace Cream 1 gm VAGINAL MOWEFR 04/28/23 04/28/23 History 0.01%] Ubidecarenone [Coenzyme Q10] 120 mg PO DAILY 04/28/23 04/28/23 History calcium polycarbophiL [Fibercon] 625 mg PO BID 04/28/23 04/28/23 History predniSONE 2.5 mg PO DAILY 04/28/23 04/28/23 History Orencia Infusion 750 mg IV Q28D 04/29/23 04/29/23 History Allergies Allergy/AdvReac Type Severity Reaction Status Date / Time ciprofloxacin [From Cipro] Allergy GETS A Verified 04/28/23 18:02 COLD SORE loratadine [From Claritin] Allergy Rash/Hives Verified 04/28/23 18:02 nitrofurantoin Allergy POSSIBLY Verified 04/28/23 18:02 [From Macrobid] CAUSE THE PULMONARY FIBROSIS Sulfa (Sulfonamide Allergy Rash/Hives Verified 04/28/23 18:02 Antibiotics) Physical Examination Gen. orthopedic exam: No point tenderness appreciated throughout the bilateral upper or lower extremities No obvious open lesions or sores are visualized throughout the cervical, thoracic or lumbar spine, bilateral upper and lower extremities Logroll maneuver the bilateral lower extremities reproduces no groin pain. Hip flexion with internal and external rotation of the left leg does reproduce some pain in the groin Hip flexion is difficult on the left side due to pain, and flexion intact on the right lower extremity, knee extension, knee flexion, plantar flexion, dorsiflexion, EHL, FHL are intact bilaterally Shoulder elevation, shoulder abduction, elbow extension, elbow flexion, wrist extension, wrist flexion, master coastwise yacht are intact bilaterally Compartments anterior and posterior to the bilateral lower extremities are soft and compressible Calf is soft, no tenderness with palpation Dorsalis pedis pulses 2+ bilaterally Results - Labs Labs: Abnormal Lab Results - Last 24 Hours (Table) 04/28/23 04/28/23 Range/Units 21:43 22:55 WBC 10.8 H (3.8-10.6) k/uL Neutrophils # 8.5 H (1.3-7.7) k/uL Sodium 134 L (137-145) mmol/L BUN 19 H (7-17) mg/dL Creatinine 0.46 L (0.52-1.04) mg/dL Glucose 105 H (74-99) mg/dL Albumin 3.1 L (3.5-5.0) g/dL H & H 04/28/23 Range/Units 21:43 Hgb 12.9 (11.4-16.0) gm/dL Hct 38.6 (34.0-46.0) % Result Diagrams: 04/28/23 21:43 04/28/23 22:55 - Diagnostic results Hip x-ray: report reviewed, image reviewed (Left hip along with pelvic x-ray was reviewed from the PACS system from 04/28/2023. Images demonstrate displaced and comminuted superior and inferior pubic rami fractures, no obvious widening noted at the SI joint) Hip CT: report reviewed (Report and images were reviewed from computed tomography scan of the left hip from 04/28/2023. Images confirmed the mildly displaced superior and inferior pubic rami fractures), image reviewed Assessment and Plan Assessment: Left-sided displaced and comminuted superior and inferior pubic rami fractures Status post fall from standing A. fib Pulmonary fibrosis Rheumatoid arthritis Plan: I was able to discuss the case, this including both physical exam findings and imaging studies with attending Dr. Olsen. No orthopedic surgical intervention is recommended at this time Recommend conservative measures, patient can weight-bear as tolerated with a walker and assistance Pain control, tramadol 50 mg every 6 hours along with [place] 7.5 mg every 6 hours are available. Patient states that she got nauseous and vomited after using Dilaudid DVT prophylaxis, okay to resume oral anticoagulant PT/OT evaluation Medical recommendations appreciated Encourage incentive spirometer Discharge planning: Patient would benefit from subacute rehab placement, we'll discuss with case management Time with Patient: Less than 30
[2023-04-29] MEDS: MONTELUKAST 10 MG TAB PO SCH (20:16)
[2023-04-29] MEDS: traMADol 50 MG TAB PO PRN (20:16)
[2023-04-29] MEDS: SYMBICORT 160-4.5 MCG INHALER INHALATION SCH (20:26)
[2023-04-30] MEDS: traMADol 50 MG TAB PO PRN (05:59)
[2023-04-30] MEDS: LEVOTHYROXINE 100 MCG TAB PO SCH (05:59)
[2023-04-30] MEDS: SYMBICORT 160-4.5 MCG INHALER INHALATION SCH ×2 (08:15→21:02)
[2023-04-30] MEDS ORDERED: polyethylene glycoL 3350 17 GM POWD.PACK PO STA (09:09)
[2023-04-30] MEDS: predniSONE 2.5 MG TAB PO SCH (09:44)
[2023-04-30] MEDS: HYDROcodone/APAP 7.5-325MG 1 EACH TAB PO PRN ×2 (09:44→18:51)
[2023-04-30] MEDS: amLODIPine 2.5 MG TAB PO SCH (09:48)
[2023-04-30] MEDS: METOPROLOL TARTRATE 25 MG TAB PO SCH (09:48)
--- NOTE | 2023-04-30 13:51 | P.PN ---
Subjective Progress Note Date: 04/30/23 Principal diagnosis: Left-sided superior and inferior pubic rami fracture Patient evaluated today at bedside, she is resting in her hospital bed, her is present at bedside. She was able to get up with physical therapy today, she states it is feeling a little bit better today. She notices most discomfort with weightbearing. She is passing some gas, she denies a bowel movement at this time. She continues to utilize a stool softeners. She denies headaches, lightheadedness, chest pain or shortness of breath Objective - Vital Signs Vital signs: Vital Signs Temp 98.4 F 04/30/23 07:17 Pulse 61 04/30/23 07:17 Resp 15 04/30/23 07:17 BP 130/70 04/30/23 07:17 Pulse Ox 93 L 04/30/23 07:17 FiO2 Intake & Output 04/29/23 04/30/23 04/30/23 18:59 06:59 18:59 Output Total 850 450 Balance -850 -450 Output: Urine 850 450 Other: Voiding Method External Catheter External Catheter Diaper External Catheter - Exam Gen. orthopedic exam: No point tenderness appreciated throughout the bilateral upper or lower extremities No obvious open lesions or sores are visualized throughout the cervical, thoracic or lumbar spine, bilateral upper and lower extremities Logroll maneuver the bilateral lower extremities reproduces no groin pain. Hip flexion with internal and external rotation of the left leg does reproduce some pain in the groin Hip flexion is difficult on the left side due to pain, and flexion intact on the right lower extremity, knee extension, knee flexion, plantar flexion, dorsiflexion, EHL, FHL are intact bilaterally Shoulder elevation, shoulder abduction, elbow extension, elbow flexion, wrist extension, wrist flexion, prepared foods associate are intact bilaterally Compartments anterior and posterior to the bilateral lower extremities are soft and compressible Calf is soft, no tenderness with palpation Dorsalis pedis pulses 2+ bilaterally - Labs CBC & Chem 7: 04/28/23 21:43 04/28/23 22:55 Assessment and Plan Assessment: Left-sided displaced and comminuted superior and inferior pubic rami fractures Status post fall from standing A. fib Pulmonary fibrosis Rheumatoid arthritis Plan: Continue conservative measures, patient can weight-bear as tolerated with a walker and assistance Pain control, tramadol 50 mg every 6 hours along with [place] 7.5 mg every 6 hours are available. Continue scheduled stool softeners Continue PT/OT Medical recommendations appreciated Encourage incentive spirometer Discharge planning: Time with Patient: Less than 30
--- NOTE | 2023-04-30 14:18 | P.PN ---
Subjective Progress Note Date: 04/30/23 (delayed charting seen at 0900) Patient is a 72-year-old female with pulmonary fibrosis, A. fib anticoagulated with Eliquis, hypertension, and multiple other comorbid conditions who presented to the ER with left groin pain after a fall from standing. She initially went to her primary care physician's office where they obtained x-rays which were negative for hip fracture but they were unable to rule out pelvic fracture and she was therefore sent to the emergency department. Patient underwent a hip CT in the emergency department which demonstrated a left and superior inferior pubic rami fracture. Seen by orthopedic surgery who recommended nonoperative management. Patient seen and examined at bedside. She denies any chest pain or unusual shortness of breath. Pain is currently well controlled her nausea has resolved. She is hoping to go to rehab as she still has been unsuccessful in getting out of bed. Vital signs reviewed General: nontoxic, no distress, appears at stated age Cardiovascular: S1S2 reg, no murmur, positive posterior tibial pulse bilateral, Lungs: CTA bilateral, no rhonchi, no rales , no accessory muscle use Abdominal: soft, nontender to palpation, no guarding, no appreciable organomegaly Ext: no gross muscle atrophy, no edema b/l lower extremities, no contractures Neuro: CN II-XI grossly intact, no focal neuro deficits Psych: Alert, oriented, appropriate affect Assessment/Plan: Left superior and inferior displaced and comminuted pubic rami fracture Mechanical fall -Continue with [place] 7. 5/325 milligrams every 6 hours as needed for moderate pain, Dilaudid 1 mg IV every 4 hours as needed for severe pain - fall precuations - PT/OT - Orthopedic review: Weight-bear as tolerated with walker Pulmonary fibrosis Rheumatoid arthritis -Continue albuterol 1 puff 4 times daily as needed for shortness of breath, Symbicort 160/4.52 puffs twice daily -Prednisone 2.5 mg daily, Singulair 10 mg at night - needs to follow up with Dr. Gutierrez after discharge Paroxysmal atrial fibrillation -Resume eliquis 5 mg by mouth twice daily -Metoprolol 12.5 mg daily Chronic: Hypertension Dyslipidemia Hypothyroidism Data Review: None new Thank you for allowing us to participate in the care of this pleasant patient. Do not hesitate to contact us with questions. Someone can be reached from the [facility] hospitalist group all hours of the day at [phone] or via perfect serve. This dictation was prepared using [employer] voice recognition software. Though every attempt is made to correct errors during dictation some may still exist. Objective - Vital Signs Vital signs: Vital Signs Temp 98.4 F 04/30/23 07:17 Pulse 61 04/30/23 07:17 Resp 15 04/30/23 07:17 BP 130/70 04/30/23 07:17 Pulse Ox 93 L 04/30/23 07:17 FiO2 Intake & Output 04/29/23 04/30/23 04/30/23 18:59 06:59 18:59 Output Total 850 450 Balance -850 -450 Output: Urine 850 450 Other: Voiding Method External Catheter External Catheter Diaper External Catheter - Labs CBC & Chem 7: 04/28/23 21:43 04/28/23 22:55
[2023-04-30] MEDS ORDERED: SENNOSIDES 8.6 MG TAB PO SCH (21:00)
[2023-04-30] MEDS: APIXABAN 5 MG TAB PO SCH (21:45)
[2023-04-30] MEDS: MONTELUKAST 10 MG TAB PO SCH (21:45)
[2023-05-01] MEDS: traMADol 50 MG TAB PO PRN (06:23)
[2023-05-01] MEDS: LEVOTHYROXINE 100 MCG TAB PO SCH (06:23)
--- NOTE | 2023-05-01 07:46 | P.DS ---
Providers Date of admission: 04/29/23 11:36 Expected date of discharge: 05/01/23 Attending physician: Torsten Olsen Consults: 04/28/23 21:26 Consult Physician Urgent Consulting Provider: Jocelynn Solorzano Consult Reason/Comments: medical consult Do you want consulting provider notified?: Yes Primary care physician: [facility] Course: Date of admission: 04/28/2023 Date of discharge: 05/01/2023 Admission diagnosis: Left-sided superior and inferior pubic rami fracture Discharge diagnosis: Same Attending physician: Dr. Olsen Surgical procedures: None Brief history: Patient is a 72 year old female who presented to [facility] on 04/28/2023 after falling and stiffness sustaining an injury to the left lower extremity. After multiple imaging test were done and it was determined the patient had a left-sided inferior and superior pubic rami fracture. Patient was unable to weight-bear without significant pain, she was admitted under our orthopedic care with plan for subacute rehab placement. Hospital course: Patient's orthopeidc and medical care was provided daily. Patient had daily laboratory tests performed for evaluation of overall blood counts. Patient had daily physical therapy to include strengthening range of motion as well as education with walker ambulation. Patient was treated with Eliquis for their postoperative DVT prophylaxis during their inpatient stay. Discharge condition/disposition: Patient will be discharged subacute rehab in stable condition. Discharge medications: Instructions are given on resumption of patient's normal daily medications per primary care recommendation, in addition patient will be prescribed Issue 5 mg/325 mg, MiraLAX 17 g, Senokot-S. Discharge instructions: 1. Weight-bear as tolerated with walker, recommend assistance at all times 2. Utilize stool softeners as scheduled 3. Pain medication as needed 4. [facility] at [facility] Patient Condition at Discharge: Fair Plan - Discharge Summary Discharge Rx Participant: Yes New Discharge Prescriptions: New polyethylene glycoL 3350 [Miralax] 17 gm PO DAILY PRN #21 packet PRN Reason: Constipation HYDROcodone/APAP 5-325MG [Issue 5-325] 1 tab PO Q6HR PRN #18 tab PRN Reason: Pain Sennosides/Docusate Sodium [Senna-S 8.6-50 mg Tablet] 2 each PO DAILY PRN #30 tablet PRN Reason: Constipation No Action Albuterol Sulfate [Proair Hfa] 1 puff INHALATION RT-QID PRN PRN Reason: Shortness Of Breath Or Wheezing Aspirin [Adult Low Dose Aspirin EC] 81 mg PO DAILY Fluticasone Nasal [place] [Flonase Nasal [place]] 1 spr EA NOSTRIL DAILY L.acidoph,Paracasei, B.lactis [Probiotic] 2 cap PO DAILY Montelukast [Singulair] 10 mg PO HS Levothyroxine Sodium [Synthroid] 100 mcg PO DAILY Alendronate Sodium [Fosamax] 70 mg PO TU amLODIPine [Norvasc] 2.5 mg PO DAILY Calcium/Vitamin D 1200mg/25mcg 1 tab PO DAILY calcium polycarbophiL [Fibercon] 625 mg PO BID Estradiol Cream [Estrace Cream 0.01%] 1 gm VAGINAL MOWEFR Ubidecarenone [Coenzyme Q10] 120 mg PO DAILY Orencia Infusion 750 mg IV Q28D Cholecalciferol [Vitamin D3 (25 Mcg = 1000 Iu)] 50 mcg PO DAILY Budesonide-Formot 160-4.5 Mcg [Symbicort 160-4.5 Mcg Inhaler] 2 puff INHALATION RT-BID Apixaban [Eliquis] 5 mg PO BID Metoprolol Tartrate [Lopressor] 12.5 mg PO DAILY predniSONE 2.5 mg PO DAILY Discharge Medication List Albuterol Sulfate [Proair Hfa] 1 puff INHALATION RT-QID PRN 10/29/17 [History] Aspirin [Adult Low Dose Aspirin EC] 81 mg PO DAILY 10/29/17 [History] Fluticasone Nasal [place] [Flonase Nasal [place]] 1 spr EA NOSTRIL DAILY 10/29/17 [H istory] L.acidoph,Paracasei, B.lactis [Probiotic] 2 cap PO DAILY 10/29/17 [History] Montelukast [Singulair] 10 mg PO HS 10/29/17 [History] Levothyroxine Sodium [Synthroid] 100 mcg PO DAILY 08/22/18 [History] Alendronate Sodium [Fosamax] 70 mg PO TU 12/27/20 [History] Apixaban [Eliquis] 5 mg PO BID 12/27/20 [History] Budesonide-Formot 160-4.5 Mcg [Symbicort 160-4.5 Mcg Inhaler] 2 puff INHALATION RT-BID 12/27/20 [History] Cholecalciferol [Vitamin D3 (25 Mcg = 1000 Iu)] 50 mcg PO DAILY 12/27/20 [History] Metoprolol Tartrate [Lopressor] 12.5 mg PO DAILY 05/21/22 [History] amLODIPine [Norvasc] 2.5 mg PO DAILY 05/21/22 [History] Calcium/Vitamin D 1200mg/25mcg 1 tab PO DAILY 04/28/23 [History] Estradiol Cream [Estrace Cream 0.01%] 1 gm VAGINAL MOWEFR 04/28/23 [History] Ubidecarenone [Coenzyme Q10] 120 mg PO DAILY 04/28/23 [History] calcium polycarbophiL [Fibercon] 625 mg PO BID 04/28/23 [History] predniSONE 2.5 mg PO DAILY 04/28/23 [History] Orencia Infusion 750 mg IV Q28D 04/29/23 [History] HYDROcodone/APAP 5-325MG [Issue 5-325] 1 tab PO Q6HR PRN #18 tab 05/01/23 [Rx] Sennosides/Docusate Sodium [Senna-S 8.6-50 mg Tablet] 2 each PO DAILY PRN #30 tablet 05/01/23 [Rx] polyethylene glycoL 3350 [Miralax] 17 gm PO DAILY PRN #21 packet 05/01/23 [Rx] Follow up [facility] - As Needed Christopher Tran DO [Primary Care Provider] - 1-2 days Torsten Olsen MD [STAFF PHYSICIAN] - 3 Weeks Activity/Diet/Wound Care/Special Instructions: Orthopedic discharge instructions: 1. Weight-bear as tolerated, utilize walker 2. Pain medication as needed 3. Stool softener scheduled 4. Plan for [facility]-up at [facility] 3 weeks for recheck Discharge Disposition: TRANSFER TO SNF/ECF
[2023-05-01] MEDS ORDERED: polyethylene glycoL 3350 17 GM POWD.PACK PO PRN (08:48)
--- NOTE | 2023-05-01 08:48 | P.PN ---
Subjective Progress Note Date: 05/01/23 Patient is a 72-year-old female with pulmonary fibrosis, A. fib anticoagulated with Eliquis, hypertension, and multiple other comorbid conditions who presented to the ER with left groin pain after a fall from standing. She initially went to her primary care physician's office where they obtained x-rays which were negative for hip fracture but they were unable to rule out pelvic fracture and she was therefore sent to the emergency department. Patient underwent a hip CT in the emergency department which demonstrated a left and superior inferior pubic rami fracture. Seen by orthopedic surgery who recommended nonoperative management. Patient seen and examined at bedside. She continues to not have had a bowel movement. She did try MiraLAX and senna yesterday. She is passing some gas. She is willing to try those again today. She is not having any abdominal pain. When she got up to walk yesterday she was having significant pain in her left lower extremity however she was able to ambulate to the chair and sit up for about 3 hours. Vital signs reviewed General: nontoxic, no distress, appears at stated age Cardiovascular: S1S2 reg, no murmur, positive posterior tibial pulse bilateral, Lungs: CTA bilateral, no rhonchi, no rales , no accessory muscle use Abdominal: soft, nontender to palpation, no guarding, no appreciable organomegaly Ext: no gross muscle atrophy, no edema b/l lower extremities, no contractures Neuro: CN II-XI grossly intact, no focal neuro deficits Psych: Alert, oriented, appropriate affect Assessment/Plan: Left superior and inferior displaced and comminuted pubic rami fracture Mechanical fall - Continue with [place] 7. 5/325 milligrams every 6 hours as needed for moderate pain, Dilaudid 1 mg IV every 4 hours as needed for severe pain - fall precuations - PT/OT - Orthopedic review: Weight-bear as tolerated with walker Pulmonary fibrosis Rheumatoid arthritis -Continue albuterol 1 puff 4 times daily as needed for shortness of breath, Symbicort 160/4.52 puffs twice daily -Prednisone 2.5 mg daily, Singulair 10 mg at night - needs to follow up with Dr. Gutierrez after discharge Constipation -Continue with MiraLAX 17 g daily as needed. Instructed the patient to take MiraLAX every day until she has 2 bowel movements and then take it every 24 hours if no bowel movement. -Continue with senna 1 tablet at night. Paroxysmal atrial fibrillation -Resume eliquis 5 mg by mouth twice daily -Metoprolol 12.5 mg daily Chronic: Hypertension Dyslipidemia Hypothyroidism Medically optimized for discharge to residential facility. Home medications addressed on discharge medication reconciliation. She should follow with Dr. Don after discharge from rehab. Data Review: None new Thank you for allowing us to participate in the care of this pleasant patient. Do not hesitate to contact us with questions. Someone can be reached from the [facility] hospitalist group all hours of the day at [phone] or via [employer]. This dictation was prepared using [employer] voice recognition software. Though every attempt is made to correct errors during dictation some may still exist. Objective - Vital Signs Vital signs: Vital Signs Temp 98.7 F 05/01/23 02:00 Pulse 91 05/01/23 02:00 Resp 16 04/30/23 21:36 BP 129/77 05/01/23 02:00 Pulse Ox 95 05/01/23 02:00 FiO2 Intake & Output 04/30/23 05/01/23 05/01/23 18:59 06:59 18:59 Intake Total 1080 Output Total 1000 2400 Balance 80 -2400 Intake: Oral 1080 Output: Urine 1000 2400 Other: Voiding Method Diaper External Catheter External Catheter # Voids 1 - Labs CBC & Chem 7: 04/28/23 21:43 04/28/23 22:55
[2023-05-01] MEDS: METOPROLOL TARTRATE 25 MG TAB PO SCH (08:57)
[2023-05-01] MEDS: APIXABAN 5 MG TAB PO SCH (08:57)
[2023-05-01] MEDS: predniSONE 2.5 MG TAB PO SCH (08:57)
[2023-05-01] MEDS: amLODIPine 2.5 MG TAB PO SCH (08:57)
[2023-05-01] MEDS ORDERED: ASPIRIN 81 MG PO SCH (09:00)
[2023-05-01] MEDS: SYMBICORT 160-4.5 MCG INHALER INHALATION SCH (09:03)
[2023-05-01 09:48] VITALS: BP 141/71; PULSE 53; RESP 17; TEMP 98.4
--- NOTE | 2023-05-01 11:34 | P.PN ---
Subjective Progress Note Date: 05/01/23 Principal diagnosis: Left-sided superior and inferior pubic rami fracture Patient evaluated today at bedside, she is resting in her hospital bed. She denies headaches, lightheadedness, chest pain or shortness of breath Objective - Vital Signs Vital signs: Vital Signs Temp 98.4 F 05/01/23 08:05 Pulse 53 L 05/01/23 08:05 Resp 17 05/01/23 08:05 BP 141/71 05/01/23 08:05 Pulse Ox 95 05/01/23 08:05 FiO2 Intake & Output 04/30/23 05/01/23 05/01/23 18:59 06:59 18:59 Intake Total 1080 Output Total 1000 2400 Balance 80 -2400 Intake: Oral 1080 Output: Urine 1000 2400 Other: Voiding Method Diaper External Catheter External Catheter # Voids 1 - Exam Gen. orthopedic exam: No point tenderness appreciated throughout the bilateral upper or lower extremities No obvious open lesions or sores are visualized throughout the cervical, thoracic or lumbar spine, bilateral upper and lower extremities Logroll maneuver the bilateral lower extremities reproduces no groin pain. Hip flexion with internal and external rotation of the left leg does reproduce some pain in the groin Hip flexion is difficult on the left side due to pain, and flexion intact on the right lower extremity, knee extension, knee flexion, plantar flexion, dorsiflexion, EHL, FHL are intact bilaterally Shoulder elevation, shoulder abduction, elbow extension, elbow flexion, wrist extension, wrist flexion, post commander are intact bilaterally Compartments anterior and posterior to the bilateral lower extremities are soft and compressible Calf is soft, no tenderness with palpation Dorsalis pedis pulses 2+ bilaterally - Labs CBC & Chem 7: 04/28/23 21:43 04/28/23 22:55 Assessment and Plan Assessment: Left-sided displaced and comminuted superior and inferior pubic rami fractures Status post fall from standing A. fib Pulmonary fibrosis Rheumatoid arthritis Plan: Continue conservative measures, patient can weight-bear as tolerated with a walker and assistance Pain control, discharge on [place] 5 mg/325 mg DVT prophylaxis, patient has resumed normal prescribed oral anticoagulant Continue scheduled stool softeners Continue PT/OT Medical recommendations appreciated Encourage incentive spirometer Discharge planning: Stable for discharge to subacute rehab today Time with Patient: Less than 30
== END 2023-05-01 11:20 | DRG 536 ==
LOC: EC 17:58 → 4SSUR 21:26 → OBSVTOIN 04-29 11:36
PROVIDERS: ADMIT Orthopaedic Surgery; ATTEND Orthopaedic Surgery
DX: S32.592A Other specified fracture of left pubis, initial encounter for closed fracture (principal); W01.0XXA Fall on same level from slipping, tripping and stumbling without subsequent striking against object, initial encounter; M06.9 Rheumatoid arthritis, unspecified; K59.00 Constipation, unspecified; J84.10 Pulmonary fibrosis, unspecified; I48.0 Paroxysmal atrial fibrillation; I10 Essential (primary) hypertension; E78.5 Hyperlipidemia, unspecified; E03.9 Hypothyroidism, unspecified; Z79.890 Hormone replacement therapy; Z79.899 Other long term (current) drug therapy; Z88.2 Allergy status to sulfonamides; Z79.01 Long term (current) use of anticoagulants; Z79.51 Long term (current) use of inhaled steroids; Z79.82 Long term (current) use of aspirin; Z79.83 Long term (current) use of bisphosphonates; Z88.8 Allergy status to other drugs, medicaments and biological substances; Z88.1 Allergy status to other antibiotic agents
CPT/HCPCS: 80053; 85025; 94640; 96372; 96374; 96375; 96376; 99285

== ENCOUNTER → 2023-04-28 | Outpatient (CLI) | payer MEDICARE ==
--- NOTE | 2023-04-29 08:17 | XR ---
EXAMINATION TYPE: CT hip LT wo con, XR pelvis AP view, XR Hip Complete LT CT DLP: 375.8 mGycm, Automated exposure control for dose reduction was used. DATE OF EXAM: 04/28/2023 6:53 PM COMPARISON: Extremity radiograph same day. CLINICAL INDICATION:Female, 72 years old with history of fall; PHH, left hip pain from fall TECHNIQUE: Axial images were obtained of the CT hip LT wo con, XR pelvis AP view, XR Hip Complete LT, Additional coronal and sagittal reformatted images and soft tissue and bone window were obtained for review. 3-D reconstruction was created on a separate workstation. Frontal view of the pelvis. Plain film Frontal and frog-leg lateral view of the left hip. Plain film Contrast used: mL of , (None if empty) Oral contrast used: (None if empty) FINDINGS: There is acute fracture of the left superior and inferior pubic ramus. The superior pubic r amus fracture is comminuted. The left femur appears intact. The visualized portions of the sacrum delphine ear intact. Pessary ring is seen within the vagina. No additional findings on plain film radiographs. The right pelvis is intact. IMPRESSION: Acute fractures of left inferior and superior pubic ramus
== END | disposition home or self-care (01) ==
LOC: RADXRYALE 16:03
PROVIDERS: ATTEND Physician Assistant Medical
DX: S32.592A Other specified fracture of left pubis, initial encounter for closed fracture (principal); R10.2 Pelvic and perineal pain; W01.0XXA Fall on same level from slipping, tripping and stumbling without subsequent striking against object, initial encounter
CPT/HCPCS: 72170; 73502

== ENCOUNTER → 2023-11-29 | Outpatient (CLI) | payer MEDICARE ==
--- NOTE | 2023-12-01 10:02 | MM ---
Reason for Exam: Screening (asymptomatic). Last mammogram was performed 1 year(s) and 1 month(s) ago. Patient History: Menarche at age 9. First Full-Term at age 22. Postmenopausal. Patient has history of breast feeding. Sister had breast cancer, age 50. Mother had breast cancer, age 70. Risk Values: Yarelis 5 year model risk: 7.8%. NCI Lifetime model risk: 16.1%. Prior Study Comparison: 06/22/2017 Bilateral Screening Mammogram, [facility]. 07/19/2018 Bilateral Screening Mammogram, [facility]. 08/09/2019 Bilateral Screening Mammogram, [facility]. 10/09/2020 Bilateral Screening Mammogram, [facility]. 10/23/2021 Bilateral Screening Mammogram, [facility]. 11/11/2022 Bilateral MG 3D screening mammo w/cad, [facility]. Tissue Density: The breasts are heterogeneously dense, which may obscure small masses. Findings: Analyzed By CAD. Focal asymmetric density at the level of the nipple seen best on the left MLO view 4.5 cm from the nipple. Additional views are recommended. No additional asymmetric densities. No suspicious calcifications. Vascular calcifications noted. Overall Assessment: Incomplete: need additional imaging evaluation, BI-RAD 0 Management: Diagnostic Mammogram of the left breast. . Patient should continue monthly self-breast exams. A clinical breast exam by your physician is recommended on an annual basis. This exam should not preclude additional follow-up of suspicious palpable abnormalities. Note on Yarelis scores and lifetime risk: 1. A Yarelis score greater than 3% is considered moderate risk. If this is the case, consider specialist referral to assess eligibility for a risk reducing agent. 2. If overall lifetime risk for the development of breast cancer is 20% or higher, the patient may qualify for future screening with alternating mammogram and breast MRI. Electronically signed and approved by: Reji Granado M.D. Radiologis
== END | disposition home or self-care (01) ==
LOC: RADMAMWWP 13:58
PROVIDERS: ATTEND Family Medicine
DX: Z12.31 Encounter for screening mammogram for malignant neoplasm of breast (principal); Z78.0 Asymptomatic menopausal state; Z80.3 Family history of malignant neoplasm of breast
CPT/HCPCS: 77063; 77067

== ENCOUNTER → 2023-12-06 | Outpatient (CLI) | payer MEDICARE ==
--- NOTE | 2023-12-06 11:27 | USB ---
Reason for Exam: Additional evaluation requested from abnormal screening. Patient History: Menarche at age 9. First Full-Term at age 22. Postmenopausal. Patient has history of breast feeding. Sister had breast cancer, age 50. Mother had breast cancer, age 70. Risk Values: Yarelis 5 year model risk: 7.8%. NCI Lifetime model risk: 16.1%. Technique: Method: Targeted. Prior Study Comparison: 10/23/2021 Bilateral Screening Mammogram, [facility]. 11/11/2022 Bilateral MG 3D screening mammo w/cad, [facility]. 11/29/2023 Bilateral MG 3D screening mammo w/cad, [facility]. Findings: The lower inner quadrant of the left breast, the axilla of the left breast and the retroareolar of the left breast were scanned. No solid or cystic masses are identified.. Overall Assessment: Probably benign, BI-RAD 3 Management: Diagnostic Mammogram of the left breast in 6 months. A clinical breast exam by your physician is recommended on an annual basis and results should be correlated with mammographic findings. This exam should not preclude additional follow-up of suspicious palpable abnormalities. Results were given to the patient verbally at the time of exam. Electronically signed and approved by: Reji Granado M.D. Radiologis
--- NOTE | 2023-12-08 09:18 | MM ---
Reason for Exam: Additional evaluation requested from abnormal screening. Last screening mammogram was performed less than 1 month ago. Patient History: Menarche at age 9. First Full-Term at age 22. Postmenopausal. Patient has history of breast feeding. Sister had breast cancer, age 50. Mother had breast cancer, age 70. Risk Values: Yarelis 5 year model risk: 7.8%. NCI Lifetime model risk: 16.1%. Prior Study Comparison: 10/23/2021 Bilateral Screening Mammogram, [facility]. 11/11/2022 Bilateral MG 3D screening mammo w/cad, [facility]. 11/29/2023 Bilateral MG 3D screening mammo w/cad, [facility]. Tissue Density: Left: The breasts are heterogeneously dense, which may obscure small masses. Findings: Analyzed By CAD. Density in question does not persist. Precautionary six-month follow-up is advised. Overall Assessment: Probably benign, BI-RAD 3 Management: Diagnostic Mammogram of the left breast in 6 months. . Results were given to the patient verbally at the time of exam. Patient should continue monthly self-breast exams. A clinical breast exam by your physician is recommended on an annual basis. This exam should not preclude additional follow-up of suspicious palpable abnormalities. Note on Yarelis scores and lifetime risk: 1. A Yarelis score greater than 3% is considered moderate risk. If this is the case, consider specialist referral to assess eligibility for a risk reducing agent. 2. If overall lifetime risk for the development of breast cancer is 20% or higher, the patient may qualify for future screening with alternating mammogram and breast MRI. Electronically signed and approved by: Reji Granado M.D. Radiologis
== END | disposition home or self-care (01) ==
LOC: RADMAMWWP 10:10
PROVIDERS: ATTEND Family Medicine
DX: R92.8 Other abnormal and inconclusive findings on diagnostic imaging of breast (principal); Z78.0 Asymptomatic menopausal state; Z80.3 Family history of malignant neoplasm of breast
CPT/HCPCS: 77065; 76642; G0279; 77061

== ENCOUNTER → 2024-06-28 | Outpatient (CLI) | payer MEDICARE ==
--- NOTE | 2024-06-28 09:41 | MM ---
Reason for Exam: Follow-up at short interval from prior study. Last screening mammogram was performed 7 month(s) ago. Patient History: Menarche at age 9. First Full-Term at age 22. Postmenopausal. Patient has history of breast feeding. Sister had breast cancer, age 50. Mother had breast cancer, age 70. Risk Values: Yarelis 5 year model risk: 7.8%. NCI Lifetime model risk: 15.2%. Prior Study Comparison: 11/11/2022 Bilateral MG 3D screening mammo w/cad, [facility]. 11/29/2023 Bilateral MG 3D screening mammo w/cad, [facility]. 12/06/2023 Left MG 3D work up w/cad , [facility]. Tissue Density: Left: There are scattered areas of fibroglandular density. Findings: Analyzed By CAD. A few benign-appearing round calcifications in the left breast are redemonstrated. No suspicious new focal mass or worrisome cluster of microcalcification in the left breast. Overall Assessment: Benign, BI-RAD 2 Management: Screening Mammogram of both breasts in 6 months. Return to routine follow-up. Results were given to the patient verbally at the time of exam. Patient should continue monthly self-breast exams. A clinical breast exam by your physician is recommended on an annual basis. This exam should not preclude additional follow-up of suspicious palpable abnormalities. Note on Yarelis scores and lifetime risk: 1. A Yarelis score greater than 3% is considered moderate risk. If this is the case, consider specialist referral to assess eligibility for a risk reducing agent. 2. If overall lifetime risk for the development of breast cancer is 20% or higher, the patient may qualify for future screening with alternating mammogram and breast MRI. [facility], , 06/28/2024 9:38 AM. Electronically signed and approved by: Zelalem Morrison M.D.
== END | disposition home or self-care (01) ==
LOC: RADMAMWWP 09:15
PROVIDERS: ATTEND Family Medicine
DX: R92.8 Other abnormal and inconclusive findings on diagnostic imaging of breast (principal); Z78.0 Asymptomatic menopausal state; Z80.3 Family history of malignant neoplasm of breast; R92.322 Mammographic fibroglandular density, left breast
CPT/HCPCS: 77065; G0279; 77061

== ENCOUNTER → 2025-01-05 | Outpatient (CLI) | payer MEDICARE ==
--- NOTE | 2025-01-05 15:20 | MM ---
Reason for Exam: Screening (asymptomatic). Last mammogram was performed 1 year(s) and 1 month(s) ago. Patient History: Menarche at age 9. First Full-Term at age 22. Postmenopausal. Patient has history of breast feeding. Sister had breast cancer, age 50. Mother had breast cancer, age 70. Risk Values: Yarelis 5 year model risk: 7.8%. NCI Lifetime model risk: 15.2%. Prior Study Comparison: 11/29/2023 Bilateral MG 3D screening mammo w/cad, [facility]. 12/06/2023 Left MG 3D work up w/cad LT, [facility]. 06/28/2024 Left MG 3D diag mammo w/cad LT, [facility]. Tissue Density: There are scattered areas of fibroglandular density. Findings: Analyzed By CAD. Right breast: There is no suspicious group of microcalcifications or new suspicious mass. Left breast: There is no suspicious group of microcalcifications or new suspicious mass. Overall Assessment: Negative, BI-RAD 1 Management: Screening Mammogram of both breasts in [address] [facility] will attempt to contact patient to return for supplemental views and ultrasound if indicated. Patient should continue monthly self-breast exams. A clinical breast exam by your physician is recommended on an annual basis. This exam should not preclude additional follow-up of suspicious palpable abnormalities. Note on Yarelis scores and lifetime risk: 1. A Yarelis score greater than 3% is considered moderate risk. If this is the case, consider specialist referral to assess eligibility for a risk reducing agent. 2. If overall lifetime risk for the development of breast cancer is 20% or higher, the patient may qualify for future screening with alternating mammogram and breast MRI. [facility], , 01/05/2025 3:16 PM. Electronically signed and approved by: Francisco Massey DO
== END | disposition home or self-care (01) ==
LOC: RADMAMWWP 13:15
PROVIDERS: ATTEND Family Medicine
DX: Z12.31 Encounter for screening mammogram for malignant neoplasm of breast (principal); R92.323 Mammographic fibroglandular density, bilateral breasts; Z78.0 Asymptomatic menopausal state; Z80.3 Family history of malignant neoplasm of breast
CPT/HCPCS: 77063; 77067